=== PATIENT | male | born 1970 | race Caucasian/White ===

== ENCOUNTER 2017-02-09 09:39 | Inpatient (IN) | payer MEDICAID, OTHER ==
--- NOTE | 2017-02-09 09:50 | ED Physician Documentation ---
PD HPI MALE - Stated complaint Stated Complaint: UNABLE TO URINATE - Chief complaint Chief Complaint: Abd Pain - History obtained from History obtained from: Patient - History of Present Illness Timing - onset: How many days ago (5-6) Timing - duration: Days (has had feeling of constipation for the past week, with lower abd cramping for 5-6 days. Having small BMs at a time. No diarrhea nor blood in stool. Also having feeling of bladder fullness but only small urination at a time. Feverish several days ago, not the past 2 days.) Timing - details: Gradual onset, Still present, Waxing and waning Associated symptoms: Urinary frequency, Abdominal pain (left lower and suprapubic area.), Other (feeling of constipation). No: Hematuria Similar symptoms before: Has not had sx before Recently seen: Not recently seen Review of Systems Constitutional: reports: Fever, Chills, Myalgias, Fatigue Nose: denies: Rhinorrhea / runny nose, Congestion Throat: denies: Sore throat Cardiac: denies: Chest pain / pressure, Palpitations, Pedal edema, Calf pain Respiratory: reports: Wheezing (mild baseline). denies: Cough GI: reports: Abdominal Pain, Nausea, Constipation (feeling like he needs to push for BM). denies: Vomiting, Diarrhea : reports: Frequency, Hesitancy. denies: Dysuria Skin: denies: Rash, Lesions Neurologic: reports: Generalized weakness. denies: Focal weakness, Numbness, Near syncope, Altered mental status, Headache Endocrine: denies: Weight loss, Easy bruising / bleeding Immunocompromised: denies: Immunocompromised PD PAST MEDICAL HISTORY - Past Medical History Cardiovascular: None Respiratory: Asthma Neuro: None Endocrine/Autoimmune: None GI: None - Present Medications Home Medications: Ambulatory Orders Medication Instructions Recorded Confirmed No Known Home Medications [No 02/09/17 02/09/17 Known Home Medications] - Allergies Allergies/Adverse Reactions: Allergies Allergy/AdvReac Type Severity Reaction Status Date / Time No Known Drug Allergies Allergy Verified 02/09/17 09:46 - Family History Family history: reports: Non contributory PD ED PE NORMAL - Vitals Vital signs reviewed: Yes - General General: Alert and oriented X 3, Well developed/nourished, Other (appears in pain; strong smell of cigarettes. ) - HEENT HEENT: Pharynx benign - Neck Neck: Supple, no meningeal sign, No adenopathy - Cardiac Cardiac: RRR, No murmur - Respiratory Respiratory: Other (mild exp wheezing noted scattered. ) - Abdomen Abdomen: Non distended, Other (somewhat tender but soft umbilical hernia noted. Otherwise he has marked tenderness to palpation lower abd/left more than right. Some rebound. No percussion tenderness. Rest of abd not tender and does not refer to lower abd. ). No: Normal bowel sounds (decreased) - Male Male : Other (normal genitalia. ) - Rectal Rectal: Other (soft stool in vault, guiac negative. ) - Back Back: No CVA TTP - Derm Derm: Warm and dry, No rash, Other (slightly pale) - Extremities Extremities: No deformity, No tenderness to palpate, Normal ROM s pain, No edema , No calf tenderness / cord - Neuro Neuro: Alert and oriented X 3, No motor deficit, Normal speech - Psych Psych: Normal mood, Normal affect Results - Vitals Vitals: Vital Signs - 24 hr 02/09/17 02/09/17 02/09/17 09:42 10:54 11:59 Temperature 36.4 C L 36.5 C 37.1 C Heart Rate 87 83 100 Respiratory 16 15 15 Rate Blood Pressure 138/88 H 142/87 H 157/91 H O2 Saturation 99 96 94 02/09/17 02/09/17 02/09/17 12:40 13:07 13:37 Temperature 36.9 C Heart Rate 104 H 113 H Respiratory 12 15 Rate Blood Pressure 167/92 H O2 Saturation 94 93 02/09/17 02/09/17 02/09/17 14:16 14:43 14:47 Temperature 38.5 C H 38.6 C H Heart Rate 127 H Respiratory 18 Rate Blood Pressure 151/81 H O2 Saturation 95 Oxygen O2 Source Room air - Labs Labs: Laboratory Tests 02/09/17 02/09/17 02/09/17 10:21 10:21 12:05 WBC 13.7 H RBC 5.29 Hgb 15.6 Hct 45.7 MCV 86.4 MCH 29.6 MCHC 34.2 RDW 13.2 Plt Count 259 MPV 8.0 Neut # 11.7 H Lymph # 1.3 L Antelope # 0.6 Eos # 0.1 Baso # 0.1 Absolute Nucleated RBC 0.01 Nucleated RBCs 0.0 Sodium 139 Potassium 3.3 L Chloride 104 Carbon Dioxide 26 Anion Gap 9.0 BUN 11 Creatinine 0.8 Estimated GFR (MDRD) 105 Glucose 114 H Calcium 9.3 Magnesium 2.0 Total Bilirubin 0.7 AST 19 ALT 19 Alkaline Phosphatase 62 Total Protein 7.6 Albumin 4.1 Globulin 3.5 Albumin/Globulin Ratio 1.2 Lipase 15 L Urine Color YELLOW Urine Clarity CLEAR Urine pH 5.5 Ur Specific [place] <=1.005 Urine Protein NEGATIVE Urine Glucose (UA) NEGATIVE Urine Ketones 15 H Urine Occult Blood NEGATIVE Urine Nitrite NEGATIVE Urine Bilirubin NEGATIVE Urine Urobilinogen 1 (NORMAL) Ur Leukocyte Esterase NEGATIVE Ur Microscopic Review NOT INDICATED Urine Culture Comments NOT INDICATED - Rads (name of study) abd CT Radiology: Prelim report reviewed, Discussed with rads (sigmoid diverticulitis with perforation and free air; no abscess. ) PD MEDICAL DECISION MAKING - ED course Complexity details: reviewed results, re-evaluated patient, considered differential (given IV fluids and pain meds. Bladder scan showed just small amount in bladder. Likely lower abd process. CT showing diverticulitis with free air. Dr. Macdonald is in OR and will see patient as soon as his case is done. IV fluids, abx, and pain meds given. patient advised on findings and expected treatments. ), d/w patient Departure - Departure Disposition: ED Transfer to [facility] Clinical Impression: Abdominal pain Qualifiers: Abdominal location: lower abdomen, unspecified Qualified Code(s): R10.30 - Lower abdominal pain, unspecified Diverticulitis Qualifiers: Diverticulitis site: large intestine Diverticulitis bleeding: without bleeding Diverticulitis complication: with perforation Qualified Code(s): K57.20 - Diverticulitis of large intestine with perforation and abscess without bleeding Umbilical hernia Qualifiers: Obstruction and gangrene presence: without obstruction or gangrene Qualified Code(s): K42.9 - Umbilical hernia without obstruction or gangrene Condition: Serious Record reviewed to determine appropriate education?: Yes
[2017-02-09] MEDS ORDERED: SODIUM CHLORIDE 0.9% 1,000 ML IV ONE ×3 (10:14→15:38)
[2017-02-09] MEDS ORDERED: ONDANSETRON 4 MG/2 ML VIAL IVP STA (10:14)
[2017-02-09] MEDS ORDERED: HYDROmorphone 1 MG/ML SYRINGE IVP STA ×2 (10:14→11:56)
[2017-02-09 10:30] LABS: BASOPHILS # (AUTO) 0.1 10^3/uL (0.0-0.1); BASOPHILS % (AUTO) 0.4 %; EOSINOPHILS # (AUTO) 0.1 10^3/uL (0.0-0.7); EOSINOPHILS % (AUTO) 0.6 %; HCT - HEMATOCRIT 45.7 % (42.0-52.0); HGB - HEMOGLOBIN 15.6 g/dL (14.0-18.0); LYMPHOCYTES # (AUTO) 1.3 10^3/uL (1.5-3.5); LYMPHOCYTES % (AUTO) 9.5 %; MEAN CORPUSCULAR HEMOGLOBIN 29.6 pg (27.0-31.0); MEAN CORPUSCULAR HGB CONC 34.2 g/dL (32.0-36.0); MEAN CORPUSCULAR VOLUME 86.4 fL (80.0-94.0); MONOCYTES # (AUTO) 0.6 10^3/uL (0.0-1.0); MONOCYTES % (AUTO) 4.1 %; NEUTROPHILS # (AUTO) 11.7 10^3/uL (1.5-6.6); NEUTROPHILS % (AUTO) 85.4 %; RED BLOOD COUNT 5.29 10^6/uL (4.70-6.10); RED CELL DISTRIBUTION WIDTH 13.2 % (12.0-15.0); UNCORRECTED WHITE BLOOD COUNT 13.7 x10^3/uL; WHITE BLOOD COUNT 13.7 x10^3/uL (4.8-10.8)
[2017-02-09] MEDS ORDERED: ONDANSETRON 4 MG/2 ML VIAL ONE (10:39)
[2017-02-09] MEDS ORDERED: HYDROmorphone 1 MG/ML SYRINGE ONE ×2 (10:39→12:04)
[2017-02-09 10:43] LABS: ALBUMIN/GLOBULIN RATIO 1.2 (1.0-2.2); BILIRUBIN,TOTAL 0.7 mg/dL (0.2-1.0); CALCIUM 9.3 mg/dL (8.5-10.3); CREATININE 0.8 mg/dL (0.6-1.2); POTASSIUM 3.3 mmol/L (3.5-5.0); TOTAL PROTEIN 7.6 g/dL (6.7-8.2)
[2017-02-09] MEDS ORDERED: IOPAMIDOL-300 100 ML VIAL IVP ONE (11:25)
--- NOTE | 2017-02-09 11:54 | CT Preliminary Report ---
Exam: CT Abdomen/Pelvis W/ IMPRESSION: 1. Moderate amount of free air throughout the abdomen and pelvis appearing to originate from a perfor ated diverticulitis at the sigmoid colon. There is extensive inflammatory changes of the sigmoid and adjacent fat stranding and a small amount of free fluid in the pelvis. No rim-enhancing focal fluid c ollections. 2. Emphysema 3. 9 mm mass right chest wall posterior to area of gynecomastia. If there are not prior studies to do cument stability further evaluation with nonemergent diagnostic mammography and possible ultrasound w ould be recommended. 4. Bilateral nonobstructing renal stones. No evidence of hydronephrosis. 5. Normal appendix. 6. Right lower lobe atelectasis versus consolidation. Critical finding phone call placed 11:50am 02/09/2017 and awaiting call back to discuss results. [facility] SITE ID: [id number]
[2017-02-09] MEDS ORDERED: metroNIDAZOLE 500 MG/100 ML 100 ML IV ONE (11:56)
[2017-02-09] MEDS ORDERED: AMPICILLIN/SULBACTAM 1.5 GM in SODIUM CHLORIDE 0.9% MINIBAG 100 ML IV STA (11:56)
--- NOTE | 2017-02-09 11:57 | CT Report ---
EXAM: CT ABDOMEN AND PELVIS EXAM DATE: 02/09/2017 11:26 AM. CLINICAL HISTORY: Lower/left abd pain for few days. COMPARISONS: None. TECHNIQUE: Routine helical CT imaging was performed through the abdomen and pelvis. IV contrast: 100 mL Isovue-300. Enteric contrast: No. Reconstructions: Coronal and sagittal. In accordance with CT protocol optimization, one or more of the following dose reduction techniques w ere utilized for this exam: automated exposure control, adjustment of mA and/or KV based on patient s ize, or use of iterative reconstructive technique. FINDINGS: Lung Bases: Right lower lobe atelectasis versus consolidation. Emphysematous changes with numerous bl ebs at the lung bases. Liver: Normal. No masses. Gallbladder/Bile Ducts: Unremarkable. Spleen: Normal. Pancreas: Normal. Adrenal Glands: Normal. Kidneys: No hydronephrosis. Bilateral nonobstructive stones measuring up to 8 mm upper pole left kidn ey. 7 mm hypodensity left lower pole kidney too small to adequately characterize but most likely to r epresent a cyst. Peritoneal Cavity/Bowel: Moderate amount of free air throughout the abdomen and pelvis which appears to arise from a perforated diverticulitis at the sigmoid colon with marked bowel wall thickening and adjacent inflammatory fat stranding. No rim-enhancing focal fluid collections. There is a small amoun t of free fluid in the pelvis. Underlying mass lesion cannot be entirely excluded. The appendix is we ll visualized and normal. Pelvic Organs: Normal. The bladder and visualized pelvic organs are within normal limits. Vasculature: Within normal limits Bones: No significant abnormality. Other: Bilateral gynecomastia. There is a rounded nodular opacity series 3 image 5 measuring 9 mm pos terior to gynecomastia that is incompletely characterized but may represent a lymph node. IMPRESSION: 1. Moderate amount of free air throughout the abdomen and pelvis appearing to originate from a perfor ated diverticulitis at the sigmoid colon. There is extensive inflammatory changes of the sigmoid and adjacent fat stranding and a small amount of free fluid in the pelvis. No rim-enhancing focal fluid c ollections. 2. Emphysema 3. 9 mm mass right chest wall posterior to area of gynecomastia. If there are not prior studies to do cument stability further evaluation with nonemergent diagnostic mammography and possible ultrasound w ould be recommended. 4. Bilateral nonobstructing renal stones. No evidence of hydronephrosis. 5. Normal appendix. 6. Right lower lobe atelectasis versus consolidation. Critical finding phone call placed 11:50am 02/09/2017 and awaiting call back to discuss results. [facility] Referring Provider Line: [phone] SITE ID: [id number]
[2017-02-09] MEDS ORDERED: metroNIDAZOLE 500 MG/100 ML 100 ML ONE (12:05)
[2017-02-09 12:31] LABS: BILIRUBIN,URINE NEGATIVE (NEGATIVE); PH,URINE 5.5 PH (5.0-7.5)
[2017-02-09 12:36] LABS: UA CHARGE (STRIP ONLY) YES; UR CULTURE IF IND NOT INDICATED
[2017-02-09] MEDS ORDERED: ALBUTEROL NEB 2.5 MG/3 ML INH STA (12:44)
[2017-02-09] MEDS ORDERED: ALBUTEROL NEB 2.5 MG/3 ML INH ONE (13:08)
[2017-02-09] MEDS ORDERED: ACETAMINOPHEN 1,000 MG/100 ML 100 ML IV STA (14:17)
[2017-02-09] MEDS ORDERED: ACETAMINOPHEN 1,000 MG/100 ML 100 ML IV ONE (14:24)
[2017-02-09] MEDS ORDERED: LACTATED RINGERS 1,000 ML IV ONE ×2 (15:38→16:51)
[2017-02-09] MEDS ORDERED: MIDAZOLAM 2 MG/2 ML VIAL IVP ONE (16:15)
[2017-02-09] MEDS ORDERED: fentaNYL 100 MCG/2 ML VIAL IVP ONE (16:15)
[2017-02-09] MEDS ORDERED: LIDOCAINE-PF 2% 10 ML AMP SUBQ ONE (16:15)
[2017-02-09] MEDS ORDERED: GLYCOPYRROLATE 1 MG/5 ML VIAL IVP ONE (16:15)
[2017-02-09] MEDS ORDERED: SUCCINYLCHOLINE 200 MG/10 ML VIAL IVP ONE (16:15)
[2017-02-09] MEDS ORDERED: PROPOFOL 200 MG/20 ML VIAL IVP ONE (16:15)
[2017-02-09] MEDS ORDERED: NEOSTIGMINE 1 MG/1 ML 10 ML MDV IVP ONE (16:15)
[2017-02-09] MEDS ORDERED: PIPERACILLIN/TAZOBACTAM 3.375 GM in SODIUM CHLORIDE 0.9% MINIBAG 100 ML IV ONE (16:51)
--- NOTE | 2017-02-09 18:05 | OPERATIVE REPORT ---
Operative Report - General Procedure Date: 02/09/17 Planned Procedure: Sigmoidectomy with end colostomy Pre-Op Diagnosis: Free air from perforated diverticulitis Procedure Performed: Sigmoidectomy with end colostomy and Hartmans pouch Post Op Diagnosis: Same - Procedure Note Primary Surgeon: Clayton Reyes MD Anesthesia Provider: Tirso Arellano Anesthesia Technique: General ET tube IV Fluids (mL): 2,900 Estimated Blood Loss (mL): 400 Urine Output (mL): 750 Complications: None - Other Other Information/Narrative: OPERATIVE DESCRIPTION/REPORT: After verbal and written informed consent was obtained detailing the risks of infection, bleeding requiring transfusion with its risks, nerve injury, and , and after I met with the patient confirming the surgery and the site of the surgery, the patient was brought to the operative suite and placed supine on the operating table. Great care was taken to avoid pressure points to prevent pressure necrosis or nerve injury. Monitoring devices were applied along with TEDs and pneumatic compressive stockings (to prevent DVT). The patient received preoperative antibiotics for surgical prophylaxis. Tirso Arellano sedated and anesthetized the patient for the entire procedure. The patient was prepped and draped in the usual sterile manner. With the patient draped my initials were clearly visible. A "time in" then confirmed that the patient was identified with 3 identifiers (name, birthdate and medical record number), the history and physical was in the chart, the signed consent confirming the procedure was in the chart, the patient was in the correct position, the aforementioned prophylactic measures were in place or given, we had the correct personel and equipment to complete the procedure and that anesthesia, surgery and nursing were given an opportunuty to express any concerns. With the agreement of everyone in the room, we proceeded with the operation. A midline incision was made starting 2[address] from the xiphoid to the umbilicus right around the umbilicus and down to the pubic tubercle and taken down to the fascia. The small umbilical hernia was reduced. Once the incision was taken down to the fascia, the fascia and peritoneum were opened without incident or difficulty. The sigmoid colon was redundant. There was a significant amount of pus in the abdomen and examination of the abdomen revealed a large cantaloupe sized mass in the pelvis. There were marked adhesions to this mass notably small bowel in 2 areas as well as the redundant sigmoid. Pus was noted to be emanating from this. Gentle finger fracture was used to free the two areas where small bowel was adherent to this mass. The small bowel was examined afterwards and to injury was noted. Additional finger fracture noted the area of perforation and a fecalith was found and removed. The mid-sigmoid colon was selected as the proximal point of resection and a 75 MARK stapler was used to transect the colon at this point. The mesentery was then taken sequentially with a Ligasure and larger vessels were tied using 2-0 Vicryl ties. When the mesenteric vessels were encountered these were suture- ligated using 2-0 Vicryl. The dissection continued down to the peritoneal reflection. The posterior dissection was done using finger dissection along the sacrum whereas the peritoneal attachments both anteriorly and laterally were taken using Bovie electrocautery. The left ureter was identified and avoided. After dissecting beyond the tumor, an Ethicon Contour stapler was obtained and placed across the distal rectum and fired. The specimen was delivered from the operative field. A circular incision was made to the left of the umbilicus where the mid sigmoid colon come up to the skin easily without tension. The subcutaneous fat was excised using Bovie electrocautery. A linear incision was made in the anterior fascia and then in the posterior fascia using Bovie electrocautery taking care to protect the bowel underneath with my hand. The incision was made large enough to admit 2 of my fingers. A Mitzi was then placed through this opening and grasped the mid sigmoid colon taking great care not to twist the colon. The colon was then brought up to the skin. The abdomen was then copiously irrigated using warm sterile saline. The bowel was reexamined and no injury or problem was noted. The fascia was then closed using a running 0 PDS suture starting superiorly and inferiorly and running to meet in the middle just below the umbilicus. The skin was approximated intermittently using 3-0 nylon sutures in a mattress fashion in between the sutures was placed iodophor gauze. A dressing was applied above this. The ostomy was then matured circumferentially using both 2-0 and 3-0 Vicryl sutures. I used 3-0 Vicryl sutures primarily but when they ran out I used the 2 -0 Vicryl sutures. I digitalized the ostomy and the ostomy was patent beyond the fascia without stenosis. The ostomy is pink in color. An ostomy appliance was placed over this. At this point a time out was performed that confirmed that all the counts were correct, the procedure that was performed, the blood loss, the IV fluids administered, and the patients condition. Dragon disclaimer: This document was created in part using voice recognition technology. Because of the inherent limitations of the system ([employer]'s [employer] Dict[employer] user manual states that the licensee understands that speech recognition is a statistical process and that recognition errors are inherent in the process), occasional same sounding word substitutions and grammatical errors do occur and persist despite proofreading. Please read this document for context.
--- NOTE | 2017-02-09 18:33 | HISTORY & PHYSICAL EXAMINATION ---
PREOPERATIVE HISTORY AND PHYSICAL/CONSULTATION DATE OF ADMISSION: 02/09/2017 REQUESTING PROVIDER: I am called on a consultation by Dr. Clayton Faith to evaluate this 46-year-old m aidan for free air in the abdomen. HISTORY OF PRESENT ILLNESS: The patient was evaluated in room 8 at [facility]. The patient states that he has been sick for the better part of a week. The pain got to the point where he could not tolerate it any more, and he came into the emergency department. He denies any diarrhea or hematochezia. He has not been able to have a decent bowel movement or urina te appropriate for this amount of time. For the past few days, he has also been feverish. ALLERGIES: NONE. MEDICATIONS: None. PAST MEDICAL AND SURGICAL HISTORY: He has asthma. No previous abdominal operation. SOCIAL HISTORY: He smokes both cigarettes as well as marijuana. Does not drink alcohol. FAMILY HISTORY: Irrelevant. REVIEW OF SYSTEMS: Irrelevant at this point in time. PHYSICAL EXAMINATION GENERAL: This is a 46-year-old gentleman who appears markedly ill. He is evaluated in room 8 in [facility]. He is able to answer questions appropriately, but clearly is feverish and i n pain. HEENT: He is normocephalic, atraumatic. Sclerae are not injected, nonicteric. His left eye is lazy. H is mucous membranes are pink and very dry. NECK: Supple, no mass, no bruit. HEART: Tachycardic to the 120-130 range. I cannot appreciate rub or murmur. LUNGS: Tachypneic bilaterally. ABDOMEN: Has peritoneal findings with no bowel sounds. EXTREMITIES: Show no clubbing, cyanosis, or edema. They are nontender. GAIT: Not evaluated. RECTAL: Not performed. GENITOURINARY: Not performed. RADIOGRAPHIC: CT of the abdomen and pelvis is read by Dr. Francois, shows a moderate amount of free a ir throughout the abdomen and pelvis appearing to originate from a perforated diverticulitis of the s igmoid colon. There is extensive inflammatory changes of the sigmoid and adjacent fat stranding and a small amount of free fluid in the pelvis. There is no rim enhancing focal fluid collections. There i s emphysema. There is a 9 mm mass in the right chest posterior to an area of gynecomastia. If there a re no prior studies to document stability further evaluation with non-emergent diagnostic mammography and possible ultrasound would be recommended. Additionally bilateral nonobstructing renal stones and no evidence of hydronephrosis. Normal appendix and right lower lobe atelectasis versus consolidation . Laboratory abnormalities on CMP include a potassium of 3.3, glucose of 114, and a lipase of 15. Abnor malities on a urine included urine ketone of 15. Abnormalities on Hematology include a white blood ce ll count of 13.7 with 11.7, neutrophils and 1.3 lymphocytes. ASSESSMENT: A 46-year-old, ill-appearing soon to be septic gentleman due to perforated diverticulitis with fecal peritonitis. PLAN: Emergent operation with abdominal washout, sigmoidectomy, and colostomy and Nancy procedure. This was described to him in as much detail as I could at the time I saw him. Consent was signed and verbal consent was obtained as well. I explained that this patient is at very high risk for infectio n. He vocalized an understanding. He will be placed in the intensive care unit afterwards. He will re quire long-term antibiotics. He may require pressors. The emphysema may require him to be intubated f or longer then normal. All of this was discussed. JOB #: [id number] EXT JOB #:[id number]
[2017-02-09] MEDS: D5NS W/20 MEQ KCL 1,000 ML IV SCH (18:59)
[2017-02-09] MEDS: ACETAMINOPHEN 1,000 MG/100 ML 100 ML IV SCH (19:14)
[2017-02-09] MEDS: HYDROmorphone PCA 10 MG IV PRN (19:19)
[2017-02-10] MEDS: SODIUM CHLORIDE FLUSH 0.9% 10 ML SYRINGE IVP SCH ×3 (00:29→13:01)
[2017-02-10] MEDS: PIPERACILLIN/TAZOBACTAM 3.375 GM in SODIUM CHLORIDE 0.9% MINIBAG 100 ML IV SCH ×4 (00:29→17:07)
[2017-02-10] MEDS: ACETAMINOPHEN 1,000 MG/100 ML 100 ML IV SCH ×4 (01:40→18:04)
[2017-02-10 05:17] LABS: BASOPHILS % (AUTO) 0.2 %; HCT - HEMATOCRIT 40.3 % (42.0-52.0); HGB - HEMOGLOBIN 13.6 g/dL (14.0-18.0); LYMPHOCYTES # (AUTO) 1.1 10^3/uL (1.5-3.5); MEAN CORPUSCULAR HEMOGLOBIN 29.9 pg (27.0-31.0); MEAN CORPUSCULAR HGB CONC 33.9 g/dL (32.0-36.0); MEAN CORPUSCULAR VOLUME 88.2 fL (80.0-94.0); MONOCYTES # (AUTO) 0.7 10^3/uL (0.0-1.0); MONOCYTES % (AUTO) 3.9 %; NEUTROPHILS % (AUTO) 89.9 %; RED BLOOD COUNT 4.57 10^6/uL (4.70-6.10); RED CELL DISTRIBUTION WIDTH 12.9 % (12.0-15.0); UNCORRECTED WHITE BLOOD COUNT 18.9 x10^3/uL; WHITE BLOOD COUNT 18.9 x10^3/uL (4.8-10.8)
[2017-02-10 05:27] LABS: BILIRUBIN,TOTAL 1.1 mg/dL (0.2-1.0); CALCIUM 7.8 mg/dL (8.5-10.3); CREATININE 0.8 mg/dL (0.6-1.2); POTASSIUM 3.7 mmol/L (3.5-5.0); TOTAL PROTEIN 5.5 g/dL (6.7-8.2)
[2017-02-10] MEDS: D5NS W/20 MEQ KCL 1,000 ML IV SCH ×2 (06:00→17:07)
[2017-02-10] MEDS: PANTOPRAZOLE 40 MG VIAL IVP SCH (06:55)
[2017-02-10] MEDS: ENOXAPARIN 40 MG/0.4 ML SYRINGE SUBQ SCH (08:22)
--- NOTE | 2017-02-10 13:33 | PROVIDER PROGRESS NOTE ---
Subjective - General Admit Date: 02/09/17 Procedure Date: 02/09/17 Post Op Days: 1 Procedure Performed: Sigmoidectomy with end colostomy, Hartmanns, abdominal washout - Review of Systems Wound/Incisions: positive: Drainage (Serosanguinous on bandage) General: positive: Other (Definitely feels better than yesterday. Wants something to drink.) HEENT: positive: No symptoms Pulmonary: positive: No symptoms Cardiovascular: positive: No symptoms Gastrointestinal: positive: Nausea (Slight.) Genitourinary: positive: Other (Marquez in place.) Musculoskeletal: positive: No symptoms Skin: positive: No symptoms Psychiatric: positive: No symptoms Objective - Patient Data Reviewed Vital Signs: Yes Vital Signs: Vital Signs x48h Temp Pulse Resp BP Pulse Ox 02/10/17 13:00 87 23 128/89 H 95 02/10/17 12:00 80 16 125/87 H 97 02/10/17 11:00 37.0 C 75 15 120/81 H 99 02/10/17 09:54 71 18 122/83 H 97 02/10/17 09:00 77 17 114/78 98 02/10/17 08:16 12 02/10/17 08:00 37.0 C 85 20 104/65 96 02/10/17 07:00 15 02/10/17 06:56 36.9 C 74 15 114/74 97 02/10/17 06:00 67 15 105/67 100 Weight: Weight 02/08/17 02/09/17 02/10/17 23:59 23:59 23:59 Weight (kg) 94 kg Intake & Output: Intake and Output Totals x24h 02/08/17 02/09/17 02/10/17 23:59 23:59 23:59 Intake Total 475 1625 Output Total 625 860 Balance -150 765 - Lab Results Lab Results: 02/10/17 04:36 02/10/17 04:36 Other Lab Results: Lab Results x24hrs 02/10/17 02/10/17 Range/Units 04:36 04:36 WBC 18.9 H (4.8-10.8) x10^3/uL RBC 4.57 L (4.70-6.10) 10^6/uL Hgb 13.6 L (14.0-18.0) g/dL Hct 40.3 L (42.0-52.0) % MCV 88.2 (80.0-94.0) fL MCH 29.9 (27.0-31.0) pg MCHC 33.9 (32.0-36.0) g/dL RDW 12.9 (12.0-15.0) % Plt Count 230 (130-450) 10^3/uL MPV 9.0 (7.4-11.4) fL Neut # 17.0 H (1.5-6.6) 10^3/uL Lymph # 1.1 L (1.5-3.5) 10^3/uL [place] # 0.7 (0.0-1.0) 10^3/uL Eos # 0.0 (0.0-0.7) 10^3/uL Baso # 0.0 (0.0-0.1) 10^3/uL Absolute Nucleated RBC 0.00 x10^3/uL Nucleated RBCs 0.0 /100WBC Sodium 140 (135-145) mmol/L Potassium 3.7 (3.5-5.0) mmol/L Chloride 110 (101-111) mmol/L Carbon Dioxide 24 (21-32) mmol/L Anion Gap 6.0 (6-13) BUN 6 (6-20) mg/dL Creatinine 0.8 (0.6-1.2) mg/dL Estimated GFR (MDRD) 105 (>89) Glucose 153 H (70-100) mg/dL Calcium 7.8 L (8.5-10.3) mg/dL Total Bilirubin 1.1 H (0.2-1.0) mg/dL AST 11 (10-42) IU/L ALT 11 (10-60) IU/L Alkaline Phosphatase 43 (42-121) IU/L Total Protein 5.5 L (6.7-8.2) g/dL Albumin 2.7 L (3.2-5.5) g/dL Globulin 2.8 (2.1-4.2) g/dL Albumin/Globulin Ratio 1.0 (1.0-2.2) - Current Medications Current Medications: Current Medications Generic Name Dose Route Start Last Admin Trade Name Freq PRN Reason Stop Dose Admin Enoxaparin Sodium 40 mg 02/10/17 09:00 02/10/17 08:22 Lovenox SUBQ 40 mg DAILY CHAITANYA Administration Hydromorphone HCl 0 mg 02/09/17 18:31 02/09/17 19:19 Dilaudid Apartment Rental Agent (Use Apartment Rental Agent Order Set) IV 10 mg PRN PRN Administration PAIN Protocol Potassium Chloride/Dextrose/Sod Cl 1,000 mls @ 100 mls/hr 02/09/17 19:00 06:00 IV 100 mls/hr .Q10H CHAITANYA Administration Acetaminophen 100 mls @ 400 mls/hr 02/09/17 19:00 02/10/17 13:01 Ofirmev IV 400 mls/hr Q6H CHAITANYA Administration Piperacillin Sod/Tazobactam 100 mls @ 200 mls/hr 02/10/17 00:00 02/10/17 11:18 Sod 3.375 gm/ Sodium Chloride IV 02/17/17 23:55 200 mls/hr Q6HR CHAITANYA Administration Pantoprazole Sodium 40 mg 02/10/17 07:00 02/10/17 06:55 Protonix IVP 40 mg QDAC CHAITANYA Administration Sodium Chloride 10 ml 02/09/17 22:00 02/10/17 13:01 Normal Saline Flush 0.9% IVP 10 ml Q8HR CHAITANYA Administration - Physical Exam Wound/Incisions: positive: Drainage (Serosnaguinous. Should be changed.) General Appearance: positive: No acute distress (Appears markedly improved in comparison to yesterday.) Eyes Bilateral: positive: No lid inflammation, Conjunctivae nml, No scleral icterus Neck: positive: Trachea midline Respiratory: positive: Chest non-tender, No respiratory distress, Breath sounds nml Cardiovascular: positive: Regular rate & rhythm Abdomen: positive: Tenderness (Incisional.), Other (Quite. Ostomy pink without production. Some blood in bag.) Skin: positive: Color nml Extremities: positive: Nml appearance Neurologic/Psychiatric: positive: Oriented x3 Impression/Plan - Problem List Problem List: D1 s/p sigmoidectomy with end colostomy, HArtmanns, abdominal washout ( umbilical herniorrhaphy - coincidental) 1) FEN Continue IVF. Patient can have ice chips as ordered for comfort. Await bowel function to return prior to feeding. 2) ID Continue Zosyn x 1 week (D2/7) for fecalent peritonitis. 3) DVT prophylaxis Continue TEDs and venadynes. Ambulate patient starting today. 4) Pathology Pending but as fecalith found suspect perforated diverticulitis. 5) Pain controlled currently with BOTTOM LOADER. 6) No problems with BP, HR, RR or sats.
[2017-02-10] MEDS: HYDROmorphone PCA 10 MG IV PRN (15:54)
[2017-02-11] MEDS: PIPERACILLIN/TAZOBACTAM 3.375 GM in SODIUM CHLORIDE 0.9% MINIBAG 100 ML IV SCH ×4 (00:10→17:01)
[2017-02-11] MEDS: ACETAMINOPHEN 1,000 MG/100 ML 100 ML IV SCH ×4 (00:48→18:06)
[2017-02-11] MEDS: D5NS W/20 MEQ KCL 1,000 ML IV SCH ×3 (04:03→22:14)
[2017-02-11 05:44] LABS: BASOPHILS % (AUTO) 0.2 %; EOSINOPHILS # (AUTO) 0.1 10^3/uL (0.0-0.7); EOSINOPHILS % (AUTO) 0.5 %; HCT - HEMATOCRIT 35.9 % (42.0-52.0); HGB - HEMOGLOBIN 12.3 g/dL (14.0-18.0); LYMPHOCYTES # (AUTO) 1.3 10^3/uL (1.5-3.5); LYMPHOCYTES % (AUTO) 9.1 %; MEAN CORPUSCULAR HEMOGLOBIN 30.3 pg (27.0-31.0); MEAN CORPUSCULAR HGB CONC 34.2 g/dL (32.0-36.0); MEAN CORPUSCULAR VOLUME 88.8 fL (80.0-94.0); MEAN PLATELET VOLUME 9.1 fL (7.4-11.4); MONOCYTES # (AUTO) 0.7 10^3/uL (0.0-1.0); MONOCYTES % (AUTO) 4.9 %; NEUTROPHILS # (AUTO) 12.5 10^3/uL (1.5-6.6); NEUTROPHILS % (AUTO) 85.3 %; RED BLOOD COUNT 4.04 10^6/uL (4.70-6.10); RED CELL DISTRIBUTION WIDTH 13.4 % (12.0-15.0); UNCORRECTED WHITE BLOOD COUNT 14.7 x10^3/uL; WHITE BLOOD COUNT 14.7 x10^3/uL (4.8-10.8)
[2017-02-11 05:54] LABS: ALBUMIN/GLOBULIN RATIO 0.9 (1.0-2.2); BILIRUBIN,TOTAL 0.9 mg/dL (0.2-1.0); CALCIUM 7.9 mg/dL (8.5-10.3); CREATININE 0.7 mg/dL (0.6-1.2); POTASSIUM 3.3 mmol/L (3.5-5.0); TOTAL PROTEIN 5.6 g/dL (6.7-8.2)
[2017-02-11] MEDS: SODIUM CHLORIDE FLUSH 0.9% 10 ML SYRINGE IVP SCH ×4 (06:59→22:14)
[2017-02-11] MEDS: PANTOPRAZOLE 40 MG VIAL IVP SCH (06:59)
[2017-02-11] MEDS: ENOXAPARIN 40 MG/0.4 ML SYRINGE SUBQ SCH (08:15)
--- NOTE | 2017-02-11 21:46 | PROVIDER PROGRESS NOTE ---
Subjective - General Admit Date: 02/09/17 Procedure Date: 02/09/17 Post Op Days: 2 Procedure Performed: Sigmoidectomy with end colostomy, Hartmanns, abdominal washout - Review of Systems Wound/Incisions: positive: Dressing dry and intact General: positive: Other (Every day feels better. Vomited this AM just once.) HEENT: positive: No symptoms Pulmonary: positive: No symptoms Cardiovascular: positive: No symptoms Gastrointestinal: positive: Nausea (Slight.), Vomiting (One episode this AM.) Genitourinary: positive: Other (Marquez in place.) Musculoskeletal: positive: No symptoms Skin: positive: No symptoms Psychiatric: positive: No symptoms Objective - Patient Data Reviewed Vital Signs: Yes Vital Signs: Vital Signs x48h Temp Pulse Resp BP Pulse Ox 02/11/17 21:20 78 17 155/98 H 02/11/17 19:35 15 02/11/17 19:34 37.7 C H 85 20 155/101 H 94 02/11/17 18:52 81 17 95 02/11/17 18:00 80 17 96 02/11/17 17:00 68 19 98 02/11/17 16:00 36.8 C 83 17 146/94 H 97 02/11/17 15:00 79 15 159/96 H 97 02/11/17 14:00 84 18 151/99 H 97 Weight: Weight 02/09/17 02/10/17 02/11/17 23:59 23:59 23:59 Weight (kg) 94 kg Intake & Output: Intake and Output Totals x24h 02/09/17 02/10/17 02/11/17 23:59 23:59 23:59 Intake Total 475 2675 2425 Output Total 625 1100 1125 Balance -150 1575 1300 - Lab Results Lab Results: 02/11/17 04:34 02/11/17 04:34 Other Lab Results: Lab Results x24hrs 02/11/17 02/11/17 Range/Units 04:34 04:34 WBC 14.7 H (4.8-10.8) x10^3/uL RBC 4.04 L (4.70-6.10) 10^6/uL Hgb 12.3 L (14.0-18.0) g/dL Hct 35.9 L (42.0-52.0) % MCV 88.8 (80.0-94.0) fL MCH 30.3 (27.0-31.0) pg MCHC 34.2 (32.0-36.0) g/dL RDW 13.4 (12.0-15.0) % Plt Count 231 (130-450) 10^3/uL MPV 9.1 (7.4-11.4) fL Neut # 12.5 H (1.5-6.6) 10^3/uL Lymph # 1.3 L (1.5-3.5) 10^3/uL [place] # 0.7 (0.0-1.0) 10^3/uL Eos # 0.1 (0.0-0.7) 10^3/uL Baso # 0.0 (0.0-0.1) 10^3/uL Absolute Nucleated RBC 0.01 x10^3/uL Nucleated RBCs 0.0 /100WBC Sodium 140 (135-145) mmol/L Potassium 3.3 L (3.5-5.0) mmol/L Chloride 111 (101-111) mmol/L Carbon Dioxide 23 (21-32) mmol/L Anion Gap 6.0 (6-13) BUN 7 (6-20) mg/dL Creatinine 0.7 (0.6-1.2) mg/dL Estimated GFR (MDRD) 123 (>89) Glucose 115 H (70-100) mg/dL Calcium 7.9 L (8.5-10.3) mg/dL Total Bilirubin 0.9 (0.2-1.0) mg/dL AST 13 (10-42) IU/L ALT 11 (10-60) IU/L Alkaline Phosphatase 46 (42-121) IU/L Total Protein 5.6 L (6.7-8.2) g/dL Albumin 2.7 L (3.2-5.5) g/dL Globulin 2.9 (2.1-4.2) g/dL Albumin/Globulin Ratio 0.9 L (1.0-2.2) - Current Medications Current Medications: Current Medications Generic Name Dose Route Start Last Admin Trade Name Freq PRN Reason Stop Dose Admin Enoxaparin Sodium 40 mg 02/10/17 09:00 02/11/17 08:15 Lovenox SUBQ 40 mg DAILY CHAITANYA Administration Hydromorphone HCl 0 mg 02/09/17 18:31 02/10/17 15:54 Dilaudid Systems Planner (Use Systems Planner Order Set) IV 10 mg PRN PRN Administration PAIN Protocol Potassium Chloride/Dextrose/Sod Cl 1,000 mls @ 100 mls/hr 02/09/17 19:00 15:30 IV 100 mls/hr .Q10H CHAITANYA Administration Acetaminophen 100 mls @ 400 mls/hr 02/09/17 19:00 02/11/17 18:06 Ofirmev IV 400 mls/hr Q6H CHAITANYA Administration Piperacillin Sod/Tazobactam 100 mls @ 200 mls/hr 02/10/17 00:00 02/11/17 17:01 Sod 3.375 gm/ Sodium Chloride IV 02/17/17 23:55 200 mls/hr Q6HR CHAITANYA Administration Pantoprazole Sodium 40 mg 02/10/17 07:00 02/11/17 06:59 Protonix IVP 40 mg QDAC CHAITANYA Administration Sodium Chloride 10 ml 02/09/17 22:00 02/11/17 12:54 Normal Saline Flush 0.9% IVP 10 ml Q8HR CHAITANYA Administration - Physical Exam Wound/Incisions: positive: Dressing dry and intact General Appearance: positive: Mild distress (Markedly improved from peroperatively.) Eyes Bilateral: positive: No lid inflammation, Conjunctivae nml, No scleral icterus Neck: positive: Trachea midline Respiratory: positive: Chest non-tender, No respiratory distress, Breath sounds nml Cardiovascular: positive: Regular rate & rhythm Abdomen: positive: Other (Quiet with decreased tenderness.) Skin: positive: Other (Color not quite normal yet but improved.) Extremities: positive: Nml appearance Neurologic/Psychiatric: positive: Oriented x3 Impression/Plan - Problem List Problem List: D2 s/p sigmoidectomy with end colostomy and Hartmanns 1) FEN Continue IVF and supplement potassium. Await bowel function prior to feeding. 2) ID Continue Zosyn D3/7-10. WBC as expected. At risk for infection due to spillage of bowel contents in abdomen. Not septic. 3) Pathology Not returned expect diverticulitis. 4) Activity Ambulating and in chair. Improving daily. 5) Pain Doing well with minimal use of his BRIM ROUNDER. Transfer to medical-surgical unit.
[2017-02-11] MEDS ORDERED: POTASSIUM CHLORIDE INJ 40 MEQ in SODIUM CHLORIDE 0.9% 480 ML IV SCH (22:27)
[2017-02-11] MEDS ORDERED: POTASSIUM CHLOR 10 MEQ/100 ML 100 ML IV ONE (23:37)
[2017-02-12] MEDS: PIPERACILLIN/TAZOBACTAM 3.375 GM in SODIUM CHLORIDE 0.9% MINIBAG 100 ML IV SCH ×4 (00:17→18:01)
[2017-02-12] MEDS: POTASSIUM CHLOR 10 MEQ/100 ML 100 ML IV SCH ×4 (00:48→03:56)
[2017-02-12] MEDS: ACETAMINOPHEN 1,000 MG/100 ML 100 ML IV SCH ×4 (00:59→19:59)
[2017-02-12] MEDS: D5NS W/20 MEQ KCL 1,000 ML IV SCH ×2 (03:20→14:56)
[2017-02-12 05:51] LABS: BASOPHILS # (AUTO) 0.1 10^3/uL (0.0-0.1); BASOPHILS % (AUTO) 0.8 %; EOSINOPHILS # (AUTO) 0.1 10^3/uL (0.0-0.7); EOSINOPHILS % (AUTO) 1.5 %; HGB - HEMOGLOBIN 11.7 g/dL (14.0-18.0); LYMPHOCYTES # (AUTO) 1.4 10^3/uL (1.5-3.5); LYMPHOCYTES % (AUTO) 15.3 %; MEAN CORPUSCULAR HEMOGLOBIN 30.1 pg (27.0-31.0); MEAN CORPUSCULAR HGB CONC 34.3 g/dL (32.0-36.0); MEAN CORPUSCULAR VOLUME 87.8 fL (80.0-94.0); MEAN PLATELET VOLUME 8.4 fL (7.4-11.4); MONOCYTES # (AUTO) 0.5 10^3/uL (0.0-1.0); MONOCYTES % (AUTO) 5.4 %; RED BLOOD COUNT 3.87 10^6/uL (4.70-6.10); RED CELL DISTRIBUTION WIDTH 13.1 % (12.0-15.0); UNCORRECTED WHITE BLOOD COUNT 9.1 x10^3/uL; WHITE BLOOD COUNT 9.1 x10^3/uL (4.8-10.8)
[2017-02-12 06:05] LABS: ALBUMIN/GLOBULIN RATIO 0.8 (1.0-2.2); BILIRUBIN,TOTAL 0.9 mg/dL (0.2-1.0); CREATININE 0.6 mg/dL (0.6-1.2); POTASSIUM 4.1 mmol/L (3.5-5.0); TOTAL PROTEIN 5.5 g/dL (6.7-8.2)
[2017-02-12] MEDS: PANTOPRAZOLE 40 MG VIAL IVP SCH (06:31)
[2017-02-12] MEDS: SODIUM CHLORIDE FLUSH 0.9% 10 ML SYRINGE IVP SCH ×3 (06:31→19:59)
[2017-02-12] MEDS: ENOXAPARIN 40 MG/0.4 ML SYRINGE SUBQ SCH (09:14)
[2017-02-12] MEDS: HYDROmorphone PCA 10 MG IV PRN (15:02)
--- NOTE | 2017-02-12 22:56 | PROVIDER PROGRESS NOTE ---
Subjective - General Admit Date: 02/09/17 Procedure Date: 02/09/17 Post Op Days: 3 Procedure Performed: Sigmoidectomy with end colostomy, Hartmanns, abdominal washout - Review of Systems Wound/Incisions: positive: Drainage (Sanguinous but no active bleeding.) General: positive: Other (Every day feels better. Very slow improvement. Not a self motivator.) HEENT: positive: No symptoms Pulmonary: positive: No symptoms Cardiovascular: positive: No symptoms Gastrointestinal: positive: Nausea (Slight.) Musculoskeletal: positive: No symptoms Skin: positive: No symptoms Psychiatric: positive: No symptoms Objective - Patient Data Reviewed Vital Signs: Yes Vital Signs: Vital Signs x48h Temp Pulse Resp BP Pulse Ox 02/12/17 21:51 16 02/12/17 20:59 37.4 C 58 L 16 134/81 H 94 02/12/17 18:00 14 02/12/17 17:19 36.8 C 58 L 16 157/96 H 95 Intake & Output: Intake and Output Totals x24h 02/10/17 02/11/17 02/12/17 23:59 23:59 23:59 Intake Total 2675 2625 2830 Output Total 1100 1125 825 Balance 1575 1500 2004 - Lab Results Lab Results: 02/12/17 04:57 02/12/17 04:57 Other Lab Results: Lab Results x24hrs 02/12/17 02/12/17 Range/Units 04:57 04:57 WBC 9.1 (4.8-10.8) x10^3/uL RBC 3.87 L (4.70-6.10) 10^6/uL Hgb 11.7 L (14.0-18.0) g/dL Hct 34.0 L (42.0-52.0) % MCV 87.8 (80.0-94.0) fL MCH 30.1 (27.0-31.0) pg MCHC 34.3 (32.0-36.0) g/dL RDW 13.1 (12.0-15.0) % Plt Count 236 (130-450) 10^3/uL MPV 8.4 (7.4-11.4) fL Neut # 7.0 H (1.5-6.6) 10^3/uL Lymph # 1.4 L (1.5-3.5) 10^3/uL [place] # 0.5 (0.0-1.0) 10^3/uL Eos # 0.1 (0.0-0.7) 10^3/uL Baso # 0.1 (0.0-0.1) 10^3/uL Absolute Nucleated RBC 0.00 x10^3/uL Nucleated RBCs 0.0 /100WBC Sodium 138 (135-145) mmol/L Potassium 4.1 (3.5-5.0) mmol/L Chloride 110 (101-111) mmol/L Carbon Dioxide 21 (21-32) mmol/L Anion Gap 7.0 (6-13) BUN 8 (6-20) mg/dL Creatinine 0.6 (0.6-1.2) mg/dL Estimated GFR (MDRD) 146 (>89) Glucose 98 (70-100) mg/dL Calcium 8.0 L (8.5-10.3) mg/dL Total Bilirubin 0.9 (0.2-1.0) mg/dL AST 14 (10-42) IU/L ALT 12 (10-60) IU/L Alkaline Phosphatase 59 (42-121) IU/L Total Protein 5.5 L (6.7-8.2) g/dL Albumin 2.5 L (3.2-5.5) g/dL Globulin 3.0 (2.1-4.2) g/dL Albumin/Globulin Ratio 0.8 L (1.0-2.2) - Current Medications Current Medications: Current Medications Generic Name Dose Route Start Last Admin Trade Name Braden PRN Reason Stop Dose Admin Enoxaparin Sodium 40 mg 02/10/17 09:00 02/12/17 09:14 Lovenox SUBQ 40 mg DAILY CHAITANYA Administration Hydromorphone HCl 0 mg 02/09/17 18:31 02/12/17 15:02 Dilaudid Boil Off Machine Operator Cloth (Use Boil Off Machine Operator Cloth Order Set) IV 10 mg PRN PRN Administration PAIN Protocol Potassium Chloride/Dextrose/Sod Cl 1,000 mls @ 100 mls/hr 02/09/17 19:00 14:56 IV 100 mls/hr .Q10H CHAITANYA Administration Acetaminophen 100 mls @ 400 mls/hr 02/09/17 19:00 02/12/17 19:59 Ofirmev IV 400 mls/hr Q6H CHAITANYA Administration Piperacillin Sod/Tazobactam 100 mls @ 200 mls/hr 02/10/17 00:00 02/12/17 18:01 Sod 3.375 gm/ Sodium Chloride IV 02/17/17 23:55 200 mls/hr Q6HR CHAITANYA Administration Pantoprazole Sodium 40 mg 02/10/17 07:00 02/12/17 06:31 Protonix IVP 40 mg QDAC CHAITANYA Administration Sodium Chloride 10 ml 02/09/17 22:00 02/12/17 19:59 Normal Saline Flush 0.9% IVP Not Given Q8HR CHAITANYA - Physical Exam Wound/Incisions: positive: Healing well (Packing removed and there is the beginning of granulation tissue.), Other (OPstomy pink without production of gas or stool.) General Appearance: positive: No acute distress Eyes Bilateral: positive: No lid inflammation, Conjunctivae nml, No scleral icterus Neck: positive: Trachea midline Respiratory: positive: Chest non-tender, No respiratory distress, Breath sounds nml Cardiovascular: positive: Regular rate & rhythm Abdomen: positive: Tenderness (Incisional.) Skin: positive: Pallor (Very slight.) Extremities: positive: Nml appearance Neurologic/Psychiatric: positive: Oriented x3 Impression/Plan - Problem List Problem List: D3 s/p sigmoidectomy, end colostomy, Hartmanns 1) FEN Continue IVF and await bowel function to return as evidenced by output in ostomy. 2) Ostomy Really appreciate Bianca Bray (sp?) and the teachiong she is doing - fantastic. Patient is slowly learning. 3) ID Wound looks great and WBC has normalized nicely but not out of the [place] yet. My concern already high will peak at day 5-7. 4) DVT Prophylaxis in place and has been ambulating. 5) Pathology Pending - expect ruptured diverticulitis. 6) Activity Must ambulate as much as possible. Shower in the works in next 24-48 hours.
[2017-02-13] MEDS: PIPERACILLIN/TAZOBACTAM 3.375 GM in SODIUM CHLORIDE 0.9% MINIBAG 100 ML IV SCH ×4 (00:01→19:25)
[2017-02-13] MEDS: ACETAMINOPHEN 1,000 MG/100 ML 100 ML IV SCH ×4 (00:45→19:55)
[2017-02-13] MEDS: D5NS W/20 MEQ KCL 1,000 ML IV SCH ×2 (02:34→16:00)
[2017-02-13] MEDS: SODIUM CHLORIDE FLUSH 0.9% 10 ML SYRINGE IVP SCH ×3 (06:01→20:16)
[2017-02-13] MEDS: SODIUM CHLORIDE FLUSH 0.9% 10 ML SYRINGE IVP PRN (06:45)
[2017-02-13] MEDS: PANTOPRAZOLE 40 MG VIAL IVP SCH (06:45)
[2017-02-13] MEDS: ENOXAPARIN 40 MG/0.4 ML SYRINGE SUBQ SCH (09:41)
[2017-02-13] MEDS: KETOROLAC 15 MG/ML VIAL IVP PRN (19:25)
--- NOTE | 2017-02-13 23:09 | PROVIDER PROGRESS NOTE ---
Subjective - General Admit Date: 02/09/17 Procedure Date: 02/09/17 Post Op Days: 4 Procedure Performed: Sigmoidectomy with end colostomy, Hartmanns, abdominal washout - Review of Systems Wound/Incisions: positive: Healing well (Packing removed and there is the beginning of granulation tissue.), Other (OPstomy pink without production of gas or stool.) General: positive: Other (Every day feels better. Very slow improvement. Not a self motivator.) HEENT: positive: No symptoms Pulmonary: positive: No symptoms Cardiovascular: positive: No symptoms Gastrointestinal: positive: Flatus (In colostomy bag.) Musculoskeletal: positive: No symptoms Skin: positive: No symptoms Psychiatric: positive: No symptoms Objective - Patient Data Reviewed Vital Signs: Yes Vital Signs: Vital Signs x48h Temp Pulse Resp BP Pulse Ox 02/13/17 19:50 37.2 C 60 18 148/83 H 98 02/13/17 16:02 36.7 C 53 L 165/92 H 98 Intake & Output: Intake and Output Totals x24h 02/11/17 02/12/17 02/13/17 23:59 23:59 23:59 Intake Total 2625 2830 2386 Output Total 7019 846 0937 Balance 1500 2005 04 - Lab Results Lab Results: 02/12/17 04:57 02/12/17 04:57 - Current Medications Current Medications: Current Medications Generic Name Dose Route Start Last Admin Trade Name Freq PRN Reason Stop Dose Admin Enoxaparin Sodium 40 mg 02/10/17 09:00 02/13/17 09:41 Lovenox SUBQ 40 mg DAILY CHAITANYA Administration Potassium Chloride/Dextrose/Sod Cl 1,000 mls @ 100 mls/hr 02/09/17 19:00 16:00 IV 100 mls/hr .Q10H CHAITANYA Administration Acetaminophen 100 mls @ 400 mls/hr 02/09/17 19:00 02/13/17 19:55 Ofirmev IV 400 mls/hr Q6H CHAITANYA Administration Piperacillin Sod/Tazobactam 100 mls @ 200 mls/hr 02/10/17 00:00 02/13/17 19:25 Sod 3.375 gm/ Sodium Chloride IV 02/17/17 23:55 200 mls/hr Q6HR CHAITANYA Administration Ketorolac Tromethamine 15 mg 02/13/17 15:52 02/13/17 19:25 Toradol Inj IVP 02/18/17 15:51 15 mg Q6HR PRN Administration PAIN Pantoprazole Sodium 40 mg 02/10/17 07:00 02/13/17 06:45 Protonix IVP 40 mg QDAC CHAITANYA Administration Sodium Chloride 10 ml 02/09/17 18:24 02/13/17 06:45 Normal Saline Flush 0.9% IVP 10 ml PRN PRN Administration NEEDED PER PROVIDER ORDERS Sodium Chloride 10 ml 02/09/17 22:00 02/13/17 20:16 Normal Saline Flush 0.9% IVP Not Given Q8HR CHAITANYA - Physical Exam Wound/Incisions: positive: Healing well (Beginning of granulation tissue.) General Appearance: positive: No acute distress Eyes Bilateral: positive: No lid inflammation, Conjunctivae nml, No scleral icterus Neck: positive: Trachea midline Respiratory: positive: Chest non-tender, No respiratory distress, Breath sounds nml Cardiovascular: positive: Regular rate & rhythm Abdomen: positive: Abnml bowel sounds (Slightly decreased.), Other (Air in colostomy bag.) Extremities: positive: Nml appearance Neurologic/Psychiatric: positive: Oriented x3 Impression/Plan - Problem List Problem List: D4 s/p Sigmoidectomy with end colostomy, Hartmanns, abdominal washout 1) FEN Start diet and see how he tolerates. Decrease IVF. 2) Activity Ambulating better. Shower in the next 24 hours. 3) Pathology Pending. 4) ID D4/7-10 Zosyn. If tolerates diet well will switch to Levaquin and Flagyl and see how he tolerates. Nice response in his WBC. 5) DVT Prophylaxis in place. Ambulating. 6) Teaching Colostomy and wound care teaching ongoing.
[2017-02-13] MEDS ORDERED: D5NS W/20 MEQ KCL 1,000 ML IV SCH (23:14)
[2017-02-14] MEDS: PIPERACILLIN/TAZOBACTAM 3.375 GM in SODIUM CHLORIDE 0.9% MINIBAG 100 ML IV SCH ×2 (00:27→05:36)
[2017-02-14] MEDS: ACETAMINOPHEN 1,000 MG/100 ML 100 ML IV SCH ×2 (01:08→06:24)
[2017-02-14] MEDS: KETOROLAC 15 MG/ML VIAL IVP PRN (01:08)
[2017-02-14 05:59] LABS: BASOPHILS % (AUTO) 0.4 %; EOSINOPHILS # (AUTO) 0.2 10^3/uL (0.0-0.7); EOSINOPHILS % (AUTO) 2.2 %; HCT - HEMATOCRIT 34.5 % (42.0-52.0); HGB - HEMOGLOBIN 11.7 g/dL (14.0-18.0); LYMPHOCYTES # (AUTO) 1.7 10^3/uL (1.5-3.5); LYMPHOCYTES % (AUTO) 22.6 %; MEAN CORPUSCULAR HEMOGLOBIN 29.8 pg (27.0-31.0); MEAN CORPUSCULAR HGB CONC 33.8 g/dL (32.0-36.0); MONOCYTES # (AUTO) 0.6 10^3/uL (0.0-1.0); MONOCYTES % (AUTO) 7.4 %; NEUTROPHILS % (AUTO) 67.4 %; RED BLOOD COUNT 3.92 10^6/uL (4.70-6.10); RED CELL DISTRIBUTION WIDTH 12.8 % (12.0-15.0); UNCORRECTED WHITE BLOOD COUNT 7.5 x10^3/uL; WHITE BLOOD COUNT 7.5 x10^3/uL (4.8-10.8)
[2017-02-14 06:07] LABS: ALBUMIN/GLOBULIN RATIO 0.9 (1.0-2.2); BILIRUBIN,TOTAL 0.8 mg/dL (0.2-1.0); CALCIUM 8.5 mg/dL (8.5-10.3); CREATININE 0.7 mg/dL (0.6-1.2); POTASSIUM 3.5 mmol/L (3.5-5.0); TOTAL PROTEIN 5.5 g/dL (6.7-8.2)
[2017-02-14] MEDS: SODIUM CHLORIDE FLUSH 0.9% 10 ML SYRINGE IVP PRN (06:25)
[2017-02-14] MEDS: PANTOPRAZOLE 40 MG VIAL IVP SCH (06:25)
[2017-02-14] MEDS: SODIUM CHLORIDE FLUSH 0.9% 10 ML SYRINGE IVP SCH (06:25)
[2017-02-14] MEDS: ENOXAPARIN 40 MG/0.4 ML SYRINGE SUBQ SCH (08:58)
--- NOTE | 2017-02-14 12:39 | PROVIDER PROGRESS NOTE ---
Subjective - General Admit Date: 02/09/17 Procedure Date: 02/09/17 Post Op Days: 5 Procedure Performed: Sigmoidectomy with end colostomy, Hartmanns, abdominal washout - Review of Systems Wound/Incisions: positive: Healing well (Beginning of granulation tissue.), Dressing dry and intact General: positive: No symptoms (Does not want opiates.) HEENT: positive: No symptoms Pulmonary: positive: No symptoms Cardiovascular: positive: No symptoms Gastrointestinal: positive: Flatus (And stool in colostomy bag.) Genitourinary: positive: No symptoms Musculoskeletal: positive: No symptoms Skin: positive: No symptoms Psychiatric: positive: No symptoms Objective - Patient Data Reviewed Vital Signs: Yes Vital Signs: Vital Signs x48h Temp Pulse Resp BP Pulse Ox 02/14/17 07:38 36.7 C 68 20 162/90 H 97 02/14/17 05:45 36.9 C 96 20 131/80 H 97 Intake & Output: Intake and Output Totals x24h 02/12/17 02/13/17 02/14/17 23:59 23:59 23:59 Intake Total 2830 2386 1461 Output Total 825 2375 875 Balance 2004 11 586 - Lab Results Lab Results: 02/14/17 04:55 02/14/17 04:55 Other Lab Results: Lab Results x24hrs 02/14/17 02/14/17 Range/Units 04:55 04:55 WBC 7.5 (4.8-10.8) x10^3/uL RBC 3.92 L (4.70-6.10) 10^6/uL Hgb 11.7 L (14.0-18.0) g/dL Hct 34.5 L (42.0-52.0) % MCV 88.0 (80.0-94.0) fL MCH 29.8 (27.0-31.0) pg MCHC 33.8 (32.0-36.0) g/dL RDW 12.8 (12.0-15.0) % Plt Count 283 (130-450) 10^3/uL MPV 8.0 (7.4-11.4) fL Neut # 5.0 (1.5-6.6) 10^3/uL Lymph # 1.7 (1.5-3.5) 10^3/uL [place] # 0.6 (0.0-1.0) 10^3/uL Eos # 0.2 (0.0-0.7) 10^3/uL Baso # 0.0 (0.0-0.1) 10^3/uL Absolute Nucleated RBC 0.00 x10^3/uL Nucleated RBCs 0.0 /100WBC Sodium 142 (135-145) mmol/L Potassium 3.5 (3.5-5.0) mmol/L Chloride 111 (101-111) mmol/L Carbon Dioxide 24 (21-32) mmol/L Anion Gap 7.0 (6-13) BUN 8 (6-20) mg/dL Creatinine 0.7 (0.6-1.2) mg/dL Estimated GFR (MDRD) 123 (>89) Glucose 99 (70-100) mg/dL Calcium 8.5 (8.5-10.3) mg/dL Total Bilirubin 0.8 (0.2-1.0) mg/dL AST 27 (10-42) IU/L ALT 29 (10-60) IU/L Alkaline Phosphatase 70 (42-121) IU/L Total Protein 5.5 L (6.7-8.2) g/dL Albumin 2.6 L (3.2-5.5) g/dL Globulin 2.9 (2.1-4.2) g/dL Albumin/Globulin Ratio 0.9 L (1.0-2.2) - Current Medications Current Medications: Current Medications Generic Name Dose Route Start Last Admin Trade Name Freq PRN Reason Stop Dose Admin Enoxaparin Sodium 40 mg 02/10/17 09:00 02/14/17 08:58 Lovenox SUBQ 40 mg DAILY CHAITANYA Administration Acetaminophen 100 mls @ 400 mls/hr 02/09/17 19:00 02/14/17 06:24 Ofirmev IV 400 mls/hr Q6H CHAITANYA Administration Piperacillin Sod/Tazobactam 100 mls @ 200 mls/hr 02/10/17 00:00 02/14/17 05:36 Sod 3.375 gm/ Sodium Chloride IV 02/17/17 23:55 200 mls/hr Q6HR CHAITANYA Administration Potassium Chloride/Dextrose/Sod Cl 1,000 mls @ 65 mls/hr 02/13/17 23:14 05:36 IV 65 mls/hr .[id number] CHAITANYA Administration Ketorolac Tromethamine 15 mg 02/13/17 15:52 02/14/17 01:08 Toradol Inj IVP 02/18/17 15:51 15 mg Q6HR PRN Administration PAIN Pantoprazole Sodium 40 mg 02/10/17 07:00 02/14/17 06:25 Protonix IVP 40 mg QDAC CHAITANYA Administration Sodium Chloride 10 ml 02/09/17 18:24 02/14/17 06:25 Normal Saline Flush 0.9% IVP 10 ml PRN PRN Administration NEEDED PER PROVIDER ORDERS Sodium Chloride 10 ml 02/09/17 22:00 02/14/17 06:25 Normal Saline Flush 0.9% IVP 10 ml Q8HR CHAITANYA Administration - Physical Exam Wound/Incisions: positive: Healing well, No drainage, Other (Good granulation.) General Appearance: positive: No acute distress Eyes Bilateral: positive: No lid inflammation, Conjunctivae nml, No scleral icterus Neck: positive: Trachea midline Respiratory: positive: Chest non-tender, No respiratory distress, Breath sounds nml Cardiovascular: positive: Regular rate & rhythm Abdomen: positive: Nml bowel sounds, Other (Ostomy pink and productive.) Skin: positive: Color nml Extremities: positive: Non-tender, Full ROM, Nml appearance Neurologic/Psychiatric: positive: Oriented x3 Impression/Plan - Problem List Problem List: D5 s/p sigmoidectomy with end colostomy and Hartmanns for perforated diverticulitis Pathology discussed with patient. Patient instructed on wound and colostomy care. Patient to follow up with me in 7-10 days. Call me with surgical questions or concerns. OK to discharge home.
--- NOTE | 2017-02-14 12:48 | Discharge Plan ---
Discharge Plan Disposition: Home, Self Care Condition: Good Prescriptions: Ketorolac [Toradol] 10 mg PO Q6H #20 tablet Diet: Regular Activity Restrictions: No lifting >15 pounds x6 Shower Restrictions: No Driving Restrictions: Yes (Until seen in office.) Weight Bearing: Full Weight Additional Instructions or Follow Up instructions: Wet to dry dressing changes twice per day. Shower daily washing wound with soap and water. Ostomy care as taught. Call with surgical questions or concerns. No Smoking: If you smoke, Please STOP! Call for help. Follow-up with: Clayton Reyes MD [Provider Admit Priv/Credential] -
[2017-02-14 12:52] VITALS: BP 147/83
--- NOTE | 2017-02-14 13:21 | Discharge Plan ---
Discharge Plan Disposition: Home, Self Care Condition: Good Prescriptions: Ketorolac [Toradol] 10 mg PO Q6H #20 tablet Activity Restrictions: No lifting >15 pounds x6 Shower Restrictions: No Driving Restrictions: Yes (Until seen in office.) Weight Bearing: Full Weight Additional Instructions or Follow Up instructions: Wet to dry dressing changes twice per day. Shower daily washing wound with soap and water. Ostomy care as taught. Call with surgical questions or concerns. Prescriptions also written for Levaquin 500 mg daily x7 days and Flagyl 250 mg QID x7 days No Smoking: If you smoke, Please STOP! Call for help. Follow-up with: Clayton Reyes MD [Provider Admit Priv/Credential] -
--- NOTE | 2017-02-15 08:56 | DISCHARGE SUMMARY ---
DATE OF ADMISSION: 02/09/2017 DATE OF DISCHARGE: 02/14/2017 DATE OF ADMISSION: 02/09/2017. DATE OF DISCHARGE: 02/14/2017 ADMITTING DIAGNOSIS: Perforated sigmoid diverticulitis with fecalent peritonitis DISCHARGE DIAGNOSIS: Perforated sigmoid diverticulitis with fecalent peritonitis treated with sigmoidectomy, end colostomy, Hartmanns pouch and IV antibiotics. COURSE: I was called in consultation by Dr. Clayton Faith to evaluate this patient with free air and acute abdomen. Studies quickly determined that the patient had free air as a result of perforated diverticulitis. He was taken urgently to the operating room on 02/09/2017, operated on by myself, Dr. Clayton Reyes, and anesthesia provider was Tirso Arellano; the patient had a sigmoidectomy with end colostomy and Nancy pouch. The patient did well postoperatively, and he is being discharged on the fifth postoperative day. MEDICATIONS His medications include: 1. Ketorolac 10 mg tablet 1 tab p.o. every 6 hours as needed for pain. 2. Levaquin 500 mg tablet p.o. daily. 3. Flagyl 250 mg tablet p.o. q.i.d. He is to follow up with me in a week to 10 days. He has been shown how to take care of his wound as well as his ostomy. He has been instructed to stop smoking , and it is very heartening to see that both he and his and his brother are interested in stopping smoking. I have asked him to contact me with any surgical questions or concerns, and he stated that he would note. He was instructed to shower daily getting soap and water through the wound as well as not lift anything heavier than 15 pounds for 6 weeks. DISPOSITION: Home with follow up with Dr. Reyes in 7-10 days. JOB #: [id number] EXT JOB #:[id number] [facility] [place]
== END 2017-02-14 13:46 | disposition home or self-care (01) | DRG 330 ==
LOC: ED 09:39 → SDS 14:50 → ICU 18:10 → MS3 02-12 19:11
PROVIDERS: ADMIT Surgery; ATTEND Surgery
PROC: 0D1N0Z4 Bypass Sigmoid Colon to Cutaneous, Open Approach (ICD-10-PCS; 2017-02-09)
PROC: 0DBN0ZZ Excision of Sigmoid Colon, Open Approach (ICD-10-PCS; principal; 2017-02-09 15:13)
DX: K57.20 Diverticulitis of large intestine with perforation and abscess without bleeding (principal); F17.210 Nicotine dependence, cigarettes, uncomplicated; J45.909 Unspecified asthma, uncomplicated; J43.9 Emphysema, unspecified
CPT/HCPCS: 36415; 51798; 74177; 80053; 81001; 81003; 83690; 83735; 85025; 87086; 87150; 88307; 94640; 96361; 96365; 96375; 96376; 99283; 99284; 99285

== ENCOUNTER 2017-05-17 06:47 | Emergency (ER) | payer MEDICAID ==
[2017-05-17] MEDS ORDERED: SODIUM CHLORIDE 0.9% 1,000 ML IV ONE ×2 (07:12→11:12)
[2017-05-17] MEDS ORDERED: ONDANSETRON 4 MG/2 ML VIAL IVP STA ×3 (07:12→12:29)
[2017-05-17] MEDS ORDERED: KETOROLAC 60 MG/2 ML VIAL IVP STA (07:12)
--- NOTE | 2017-05-17 07:15 | ED Physician Documentation ---
PD HPI ABD PAIN - Stated complaint Stated Complaint: ABD PAIN - Chief complaint Chief Complaint: Abd Pain - History obtained from History obtained from: Patient, Family - History of Present Illness Timing - onset: Enter time (0500), Yesterday Timing - duration: Days (1) Timing - details: Abrupt onset, Still present Quality: Sharp, Pain Location: LUQ Radiation: Left flank Improved by: Other (nothing) Worsened by: Other (nothing) Associated symptoms: Nausea, Vomiting Similar symptoms before: Diagnosis (diverticuilitis) Recently seen: Not recently seen - Additional information Additional information: 47-year-old male with a history of ruptured diverticula in February of this year was well last week and yesterday morning at 5:00 he developed acute left flank pain radiating to his left lower quadrant. He has had severe pain nausea and vomiting. He does not have specific modifying factors for his pain. Review of Systems Constitutional: denies: Fever Eyes: denies: Decreased vision Ears: denies: Ear pain Nose: denies: Congestion Throat: denies: Sore throat Cardiac: denies: Chest pain / pressure, Palpitations Respiratory: denies: Dyspnea, Cough GI: reports: Abdominal Pain, Nausea, Vomiting : denies: Dysuria, Frequency Skin: denies: Rash Musculoskeletal: reports: Back pain. denies: Neck pain Neurologic: denies: Generalized weakness, Focal weakness, Numbness PD PAST MEDICAL HISTORY - Past Medical History Past Medical History: Yes Cardiovascular: None Respiratory: Asthma Neuro: None Endocrine/Autoimmune: None GI: Diverticulitis Psych: None Musculoskeletal: None - Past Surgical History Past Surgical History: Yes General: Bowel surgery - Present Medications Home Medications: Ambulatory Orders Medication Instructions Recorded Confirmed Ketorolac [Toradol] 10 mg PO Q6H #20 tablet 02/14/17 02/21/17 Levofloxacin [Levaquin] 500 mg PO DAILY 02/21/17 02/21/17 metroNIDAZOLE [Metronidazole] 250 mg PO QID 02/21/17 02/21/17 HYDROcod/ACETAM 5/325 [[place] 5/325] 1 - 2 ea PO Q6H PRN #15 tablet 05/17/17 Tamsulosin [Flomax] 0.4 mg PO DAILY #10 capsule 05/17/17 - Allergies Allergies/Adverse Reactions: Allergies Allergy/AdvReac Type Severity Reaction Status Date / Time No Known Drug Allergies Allergy Verified 05/17/17 06:58 - Social History Does the pt smoke?: No Smoking Status: Former smoker Does the pt drink ETOH?: No Does the pt have substance abuse?: Yes Substance Use and Type: Marijuana - Immunizations Immunizations are current?: No Immunizations: TDAP >10years/unknown - POLST Patient has POLST: No PD ED PE NORMAL - Vitals Vital signs reviewed: Yes (Hypertensive marked) - General General: Alert and oriented X 3, Well developed/nourished, Other (47-year-old male grunting in pain.) - HEENT HEENT: Atraumatic, PERRL, EOMI - Neck Neck: Supple, no meningeal sign - Cardiac Cardiac: RRR, No murmur - Respiratory Respiratory: No respiratory distress, Clear bilaterally - Abdomen Abdomen: Normal bowel sounds, Soft, Non tender, Other (There is a well-healed midline scar without inflammation and a pouch with brown stool.) - Back Back: No CVA TTP, No spinal TTP - Derm Derm: Normal color, No rash - Extremities Extremities: No deformity, No edema - Neuro Neuro: No motor deficit, No sensory deficit Eye Opening: Spontaneous Motor: Obeys Commands Verbal: Oriented GCS Score: 15 - Psych Psych: Normal mood, Normal affect Results - Vitals Vitals: Vital Signs - 24 hr 05/17/17 05/17/17 05/17/17 06:55 12:21 14:02 Temperature 36.5 C 37.2 C 36.6 C Heart Rate 48 L 64 74 Respiratory 19 16 16 Rate Blood Pressure 177/121 H 146/108 H 144/104 H O2 Saturation 100 96 96 Oxygen O2 Source Room air - Labs Labs: Laboratory Tests 05/17/17 05/17/17 05/17/17 08:27 08:27 08:27 WBC 17.3 H RBC 5.63 Hgb 16.7 Hct 48.6 MCV 86.3 MCH 29.7 MCHC 34.4 RDW 14.2 Plt Count 197 MPV 8.2 Neut # 15.7 H Lymph # 1.1 L [place] # 0.4 Eos # 0.0 Baso # 0.0 Absolute Nucleated RBC 0.02 Nucleated RBC % 0.1 Sodium 141 Potassium 3.7 Chloride 102 Carbon Dioxide 23 Anion Gap 16.0 H BUN 15 Creatinine 1.0 Estimated GFR (MDRD) 81 L Glucose 142 H Calcium 9.8 Total Bilirubin 0.8 AST 36 ALT 46 Alkaline Phosphatase 64 Troponin I < 0.04 Total Protein 8.1 Albumin 5.1 Globulin 3.0 Albumin/Globulin Ratio 1.7 Lipase 24 Urine Color Urine Clarity Urine pH Ur Specific [place] Urine Protein Urine Glucose (UA) Urine Ketones Urine Occult Blood Urine Nitrite Urine Bilirubin Urine Urobilinogen Ur Leukocyte Esterase Urine RBC Urine WBC Ur Epithelial Cells Ur Squamous Epith Cells Amorphous Sediment Urine Bacteria Ur Microscopic Review Urine Culture Comments 05/17/17 05/17/17 11:15 12:42 WBC RBC Hgb Hct MCV MCH MCHC RDW Plt Count MPV Neut # Lymph # [place] # Eos # Baso # Absolute Nucleated RBC Nucleated RBC % Sodium Potassium Chloride Carbon Dioxide Anion Gap BUN Creatinine Estimated GFR (MDRD) Glucose Calcium Total Bilirubin AST ALT Alkaline Phosphatase Troponin I Total Protein Albumin Globulin Albumin/Globulin Ratio Lipase Urine Color YELLOW YELLOW Urine Clarity [place] Urine pH 6.0 6.0 Ur Specific [place] >=1.030 H 1.025 Urine Protein 30 H 30 H Urine Glucose (UA) NEGATIVE NEGATIVE Urine Ketones 40 H 15 H Urine Occult Blood LARGE H LARGE H Urine Nitrite NEGATIVE NEGATIVE Urine Bilirubin NEGATIVE NEGATIVE Urine Urobilinogen 0.2 (NORMAL) 0.2 (NORMAL) Ur Leukocyte Esterase NEGATIVE NEGATIVE Urine RBC TNTC H TNTC H Urine WBC 6-10 H 0-3 Ur Epithelial Cells RARE Transitional FEW Transitional Ur Squamous Epith Cells MOD Squamous H MOD Squamous H Amorphous Sediment Marked Urine Bacteria Few Many H Ur Microscopic Review INDICATED INDICATED Urine Culture Comments NOT INDICATED NOT INDICATED - Rads (name of study) CT abdomen pelvis without Radiology: Prelim report reviewed (Impression: 1. Approximate 7 mm calcification within the left proximal ureter with associated mild hydronephrosis. A few other bilateral small renal stones are also present.), EMP read indepedently, See rad report Procedures - Bedside sono Bedside sono by EMP: With use of bedside ultrasound the left kidney is imaged there is evidence of hydronephrosis and the kidney is sonographically nontender.An IV is begun patient is administered a liter of saline 30 mg of Toradol and 4 mg of Zofran intravenously. A CT scan of the abdomen pelvis without contrast is ordered. PD MEDICAL DECISION MAKING - ED course Complexity details: reviewed old records, reviewed results, re-evaluated patient , considered differential, d/w patient, d/w family ED course: 47-year-old male with a recent diverticulitis with perforation appears to have healed well from his perforation and yesterday had sudden onset of left flank pain. His presentation (sudden onset of non-modifieable left flank pain)was consistent with kidney stone and on bedside ultrasound exam there was presence of hydronephrosis on the left side. A CT scan confirmed presence of a 7 mm stone in the proximal ureter.The patient had good relief of this pain with use of Toradol and Zofran and he was administered a liter of saline. He has return of the pain and requires dilaudid 1mg IV and a repeat dose as we are awaiting urinalysis. His initial urine was concerning for infection with 6-10wbc's and this was repeated as it did not make grade for culture and the repeat was without the wbc's. He is treated conservatively and he has had this problem previously. He will seek follow up in [place]. Departure - Departure Disposition: 01 Home, Self Care Clinical Impression: Ureterolithiasis Condition: Stable Instructions: ED Stone Renal W Colic Follow-Up: Shabbir Pierce MD [Provider Admit Priv/Credential] - Prescriptions: HYDROcod/ACETAM 5/325 [[place] 5/325] 1 - 2 ea PO Q6H PRN #15 tablet PRN Reason: Pain Tamsulosin [Flomax] 0.4 mg PO DAILY #10 capsule Comments: Today in the Emergency Department your blood pressure was elevated. This can happen from the stress of the visit itself, from a current illness or circumstance or from uncontrolled hypertension. If you take blood pressure medications take your usual mediations, have your blood pressure re-checked in an appropriate setting and follow up any elevation with your primary care doctor. Discharge Date/Time: 05/17/17 14:08
[2017-05-17] MEDS ORDERED: ONDANSETRON 4 MG/2 ML VIAL ONE (07:37)
[2017-05-17] MEDS ORDERED: KETOROLAC 30 MG/ML VIAL ONE (07:37)
--- NOTE | 2017-05-17 08:02 | CT Preliminary Report ---
Exam: CT ABDOMEN/PELVIS W/O IMPRESSION: 1. Approximate 7 mm calcification within the left proximal ureter with associated mild hydronephrosis . A few other bilateral small renal stones are also present. [facility] SITE ID: [id number]
--- NOTE | 2017-05-17 08:05 | CT Report ---
EXAM: CT ABDOMEN AND PELVIS (CT KUB) EXAM DATE: 05/17/2017 07:35 AM. CLINICAL HISTORY: Left flank pain hx/o diverticulitis. COMPARISONS: CT 02/09/2017. TECHNIQUE: Routine axial helical CT imaging was performed through the abdomen and pelvis without IV c ontrast. Reconstructions: Coronal and sagittal. In accordance with CT protocol optimization, one or more of the following dose reduction techniques w ere utilized for this exam: automated exposure control, adjustment of mA and/or KV based on patient s ize, or use of iterative reconstructive technique. FINDINGS: Lung Bases: Minimal linear atelectasis/scarring. Right Kidney/Ureter: Small calcification at the upper pole. No hydronephrosis. No ureteral calcificat ion. No contour deforming mass. Left Kidney/Ureter: Approximate 7 mm calcification at the proximal ureter with mild associated hydron ephrosis and minimal perinephric stranding. A few punctate calcifications noted within the kidney at the lower pole. Other Solid Organs: Noncontrast images of the solid organs are grossly unremarkable. Gallbladder/Bile Ducts: Unremarkable. Peritoneal Cavity: No bowel obstruction. New left anterior abdominal wall ostomy is present. No acute focal inflammatory change surrounding the bowel. Rectal stump appears unremarkable. No free air. No discrete collection. No bulky adenopathy. Pelvic Organs: Urinary bladder is incompletely distended with no calcifications within it. Small fat- containing left inguinal hernia. Prostate appears unremarkable. Vasculature: Unremarkable. Other: None. IMPRESSION: 1. Approximate 7 mm calcification within the left proximal ureter with associated mild hydronephrosis . A few other bilateral small renal stones are also present. [facility] Referring Provider Line: [phone] SITE ID: [id number]
[2017-05-17 08:34] LABS: BASOPHILS % (AUTO) 0.2 %; EOSINOPHILS % (AUTO) 0.1 %; HCT - HEMATOCRIT 48.6 % (42.0-52.0); HGB - HEMOGLOBIN 16.7 g/dL (14.0-18.0); LYMPHOCYTES # (AUTO) 1.1 10^3/uL (1.5-3.5); LYMPHOCYTES % (AUTO) 6.2 %; MEAN CORPUSCULAR HEMOGLOBIN 29.7 pg (27.0-31.0); MEAN CORPUSCULAR HGB CONC 34.4 g/dL (32.0-36.0); MEAN CORPUSCULAR VOLUME 86.3 fL (80.0-94.0); MEAN PLATELET VOLUME 8.2 fL (7.4-11.4); MONOCYTES # (AUTO) 0.4 10^3/uL (0.0-1.0); MONOCYTES % (AUTO) 2.4 %; NEUTROPHILS # (AUTO) 15.7 10^3/uL (1.5-6.6); NEUTROPHILS % (AUTO) 91.1 %; NUCLEATED RED BLOOD CELLS AUTO 0.1 /100WBC; RED BLOOD COUNT 5.63 10^6/uL (4.70-6.10); RED CELL DISTRIBUTION WIDTH 14.2 % (12.0-15.0); UNCORRECTED WHITE BLOOD COUNT 17.3 x10^3/uL; WHITE BLOOD COUNT 17.3 x10^3/uL (4.8-10.8)
[2017-05-17 08:47] LABS: ALBUMIN/GLOBULIN RATIO 1.7 (1.0-2.2); BILIRUBIN,TOTAL 0.8 mg/dL (0.2-1.0); CALCIUM 9.8 mg/dL (8.5-10.3); POTASSIUM 3.7 mmol/L (3.5-5.0); TOTAL PROTEIN 8.1 g/dL (6.7-8.2)
[2017-05-17] MEDS ORDERED: HYDROmorphone 1 MG/ML SYRINGE IVP STA ×2 (09:46→12:06)
[2017-05-17 12:09] LABS: BILIRUBIN,URINE NEGATIVE (NEGATIVE); UA w/ MICROSCOPIC CHARGE YES
[2017-05-17 12:19] LABS: UR CULTURE IF IND NOT INDICATED
[2017-05-17 13:00] LABS: BILIRUBIN,URINE NEGATIVE (NEGATIVE); UA w/ MICROSCOPIC CHARGE YES
[2017-05-17 13:29] LABS: UR CULTURE IF IND NOT INDICATED; WBC,URINE 0-3 /HPF (0-3)
[2017-05-17 14:04] VITALS: BP 144/104
== END 2017-05-17 14:08 | disposition home or self-care (01) ==
LOC: ED 06:47
DX: N13.2 Hydronephrosis with renal and ureteral calculous obstruction (principal); R03.0 Elevated blood-pressure reading, without diagnosis of hypertension; J45.909 Unspecified asthma, uncomplicated; Z87.19 Personal history of other diseases of the digestive system; Z87.891 Personal history of nicotine dependence
CPT/HCPCS: 36415; 74176; 80053; 81001; 83690; 84484; 85025; 96361; 96374; 96375; 96376; 99283; 99285; J1170; 81003; 87086

== ENCOUNTER 2017-05-24 10:35 | Emergency (ER) | payer MEDICAID ==
[2017-05-24 11:01] LABS: BILIRUBIN,URINE NEGATIVE (NEGATIVE)
[2017-05-24 11:03] LABS: UA w/ MICROSCOPIC CHARGE YES
[2017-05-24 11:21] LABS: UR CULTURE IF IND NOT INDICATED; WBC,URINE 0-3 /HPF (0-3)
[2017-05-24] MEDS ORDERED: ONDANSETRON 4 MG/2 ML VIAL IVP STA (11:31)
[2017-05-24] MEDS ORDERED: HYDROmorphone 1 MG/ML SYRINGE IVP STA (11:31)
[2017-05-24] MEDS ORDERED: KETOROLAC 60 MG/2 ML VIAL IVP STA (11:31)
[2017-05-24 11:35] LABS: BASOPHILS # (AUTO) 0.1 10^3/uL (0.0-0.1); BASOPHILS % (AUTO) 0.7 %; EOSINOPHILS # (AUTO) 0.1 10^3/uL (0.0-0.7); EOSINOPHILS % (AUTO) 0.9 %; HCT - HEMATOCRIT 47.2 % (42.0-52.0); HGB - HEMOGLOBIN 16.5 g/dL (14.0-18.0); LYMPHOCYTES # (AUTO) 2.1 10^3/uL (1.5-3.5); LYMPHOCYTES % (AUTO) 17.2 %; MEAN CORPUSCULAR HEMOGLOBIN 29.6 pg (27.0-31.0); MEAN CORPUSCULAR HGB CONC 35.1 g/dL (32.0-36.0); MEAN CORPUSCULAR VOLUME 84.5 fL (80.0-94.0); MEAN PLATELET VOLUME 8.2 fL (7.4-11.4); MONOCYTES # (AUTO) 0.9 10^3/uL (0.0-1.0); NEUTROPHILS # (AUTO) 9.2 10^3/uL (1.5-6.6); NEUTROPHILS % (AUTO) 74.2 %; NUCLEATED RED BLOOD CELLS AUTO 0.1 /100WBC; RED BLOOD COUNT 5.59 10^6/uL (4.70-6.10); RED CELL DISTRIBUTION WIDTH 14.2 % (12.0-15.0); UNCORRECTED WHITE BLOOD COUNT 12.4 x10^3/uL; WHITE BLOOD COUNT 12.4 x10^3/uL (4.8-10.8)
[2017-05-24 11:45] LABS: ALBUMIN/GLOBULIN RATIO 1.4 (1.0-2.2); BILIRUBIN,TOTAL 0.9 mg/dL (0.2-1.0); CALCIUM 9.9 mg/dL (8.5-10.3); CREATININE 1.5 mg/dL (0.6-1.2); POTASSIUM 3.9 mmol/L (3.5-5.0); TOTAL PROTEIN 8.7 g/dL (6.7-8.2)
--- NOTE | 2017-05-24 12:19 | XRAY Preliminary Report ---
Exam: XR ABDOMEN 1 VIEW IMPRESSION: 1. Proximal to mid left ureteral stone is slightly distal to location on recent CT 05/17/2017. [facility] SITE ID: [id number]
--- NOTE | 2017-05-24 12:22 | XRAY Report ---
EXAM: ABDOMEN RADIOGRAPHY EXAM DATE: 05/24/2017 11:50 AM. CLINICAL HISTORY: Position of left ureteral stone. COMPARISON: Abdominal pelvic CT 05/17/2017. TECHNIQUE: 1 view. FINDINGS: Bowel Gas Pattern: Prominent stool within right hemicolon. No dilated bowel. No pneumatosis. Other: Increased density along left lateral tip/cortex of left L2 transverse process as on prior CT. 2 mm asymmetric density projecting along superior tip of left L4 transverse process. This probably co rresponds to recently demonstrated proximal left ureteral stone. IMPRESSION: 1. Proximal to mid left ureteral stone is slightly distal to location on recent CT 05/17/2017. [facility] Referring Provider Line: [phone] SITE ID: [id number]
--- NOTE | 2017-05-24 12:46 | ED Physician Documentation ---
PD HPI ABD PAIN - Stated complaint Stated Complaint: BACK LT SIDE PX - Chief complaint Chief Complaint: Abd Pain - History obtained from History obtained from: Patient - History of Present Illness Timing - onset: How many weeks ago (1) Timing - details: Still present, Intermittant Quality: Pain Location: Other (left flank) Worsened by: Other (nothing) Associated symptoms: Nausea. No: Fever, Vomiting Similar symptoms before: Diagnosis (Seen here one week ago and diagnosed with 7 mm left proximal ureteral stone.) Recently seen: Emergency Dept - Additional information Additional information: The patient is a 47-year-old male who presents with left flank pain of one week' s duration. Pain has been intermittent, with associated nausea, without vomiting, fever, or dysuria. He has a history of kidney stones, and was seen here one week ago with similar pain. CT scan at that time revealed a 7 mm left proximal ureteral stone with mild hydronephrosis. He has no primary physician, and when calling urology office, he was advised that next available appointment was several weeks out. Past medical history is significant for colostomy for diverticular disease in February 2017. Review of Systems Constitutional: denies: Fever Nose: denies: Congestion Throat: denies: Sore throat Cardiac: denies: Chest pain / pressure Respiratory: denies: Dyspnea, Cough GI: reports: Abdominal Pain, Nausea. denies: Vomiting : denies: Dysuria Skin: denies: Rash Musculoskeletal: reports: Back pain (left flank). denies: Extremity pain Neurologic: denies: Focal weakness, Numbness, Headache PD PAST MEDICAL HISTORY - Past Medical History Past Medical History: Yes Cardiovascular: None Respiratory: Asthma Neuro: None Endocrine/Autoimmune: None GI: Diverticulitis : Kidney stones Psych: None Musculoskeletal: None Other Past Medical History: colostomy - Past Surgical History Past Surgical History: Yes General: Bowel surgery - Present Medications Home Medications: Ambulatory Orders Medication Instructions Recorded Confirmed Ketorolac [Toradol] 10 mg PO Q6H #20 tablet 02/14/17 05/24/17 Levofloxacin [Levaquin] 500 mg PO DAILY 02/21/17 05/24/17 metroNIDAZOLE [Metronidazole] 250 mg PO QID 02/21/17 05/24/17 HYDROcod/ACETAM 5/325 [[place] 5/325] 1 - 2 ea PO Q6H PRN #15 tablet 05/17/17 Tamsulosin [Flomax] 0.4 mg PO DAILY #10 capsule 05/17/17 05/24/17 Promethazine [Phenergan] 25 - 50 mg PO Q6H PRN #10 tab 05/24/17 Tamsulosin [Flomax] 0.4 mg PO DAILY #7 capsule 05/24/17 oxyCODONE/ACET 5/325 [Percocet 5 1 - 2 tab PO Q4-6H PRN #20 tablet 05/24/17 mg/325 mg] - Allergies Allergies/Adverse Reactions: Allergies Allergy/AdvReac Type Severity Reaction Status Date / Time No Known Drug Allergies Allergy Verified 05/24/17 10:49 - Social History Does the pt smoke?: No Smoking Status: Never smoker Does the pt drink ETOH?: No Does the pt have substance abuse?: Yes - Immunizations Immunizations are current?: No Immunizations: TDAP >10years/unknown - POLST Patient has POLST: No PD ED PE NORMAL - Vitals Vital signs reviewed: Yes (hypertensive) - General General: Alert and oriented X 3, Well developed/nourished - HEENT HEENT: Atraumatic, Moist mucous membranes, Pharynx benign - Neck Neck: No adenopathy, No JVD - Cardiac Cardiac: RRR, No murmur - Respiratory Respiratory: No respiratory distress, Clear bilaterally - Abdomen Abdomen: Soft, Non tender, Other (Colostomy bag in place.) - Back Back: Other (Left CVA tenderness to percussion.) - Derm Derm: No rash - Neuro Neuro: Alert and oriented X 3, No motor deficit, Normal speech Results - Vitals Vitals: Oxygen O2 Source Room air - Labs Labs: Laboratory Tests 05/24/17 05/24/17 05/24/17 10:52 11:06 11:06 WBC 12.4 H RBC 5.59 Hgb 16.5 Hct 47.2 MCV 84.5 MCH 29.6 MCHC 35.1 RDW 14.2 Plt Count 253 MPV 8.2 Neut # 9.2 H Lymph # 2.1 [place] # 0.9 Eos # 0.1 Baso # 0.1 Absolute Nucleated RBC 0.01 Nucleated RBC % 0.1 Sodium 139 Potassium 3.9 Chloride 101 Carbon Dioxide 25 Anion Gap 13.0 BUN 17 Creatinine 1.5 H Estimated GFR (MDRD) 51 L Glucose 105 H Calcium 9.9 Total Bilirubin 0.9 AST 22 ALT 27 Alkaline Phosphatase 65 Total Protein 8.7 H Albumin 5.1 Globulin 3.6 Albumin/Globulin Ratio 1.4 Lipase 21 L Urine Color YELLOW Urine Clarity CLEAR Urine pH 6.0 Ur Specific [place] 1.025 Urine Protein NEGATIVE Urine Glucose (UA) NEGATIVE Urine Ketones 15 H Urine Occult Blood SMALL H Urine Nitrite NEGATIVE Urine Bilirubin NEGATIVE Urine Urobilinogen 0.2 (NORMAL) Ur Leukocyte Esterase NEGATIVE Urine RBC 0-5 Urine WBC 0-3 Ur Squamous Epith Cells NONE SEEN Urine Bacteria None Seen Ur Microscopic Review INDICATED Urine Culture Comments NOT INDICATED - Rads (name of study) 1 view abdomen Radiology: Prelim report reviewed, EMP read contemporaneously, See rad report ( Proximal to mid left ureteral stone is slightly distal to location on recent CT 05/17/2017.) PD MEDICAL DECISION MAKING - ED course Complexity details: reviewed old records, reviewed results, re-evaluated patient , considered differential, d/w patient, d/w family ED course: The patient's presentation is most consistent with left sided renal colic, with proximal to mid left ureteral stone seen on KUB. The imaging study reveals the stone to be slightly distal to the previous imaging study 1 week ago. Treatment in the emergency department included administration of hydromorphone 1 mg IV, ketorolac 30 mg IV, and ondansetron 4 mg IV. His symptoms markedly improved with the above treatment. He is being discharged with prescriptions for Flomax, Phenergan, and Percocet, 20 tablets. I discussed his condition with Dr. Brown, urologist with [facility]. She will see the patient in outpatient follow-up. Imaging studies were transmitted to [facility]. I discussed with the patient and his family the importance of urology follow-up, as well as potentially worrisome signs or symptoms that should prompt reevaluation in the emergency department. Departure - Departure Disposition: 01 Home, Self Care Clinical Impression: Renal colic on left side, Ureterolithiasis Condition: Stable Instructions: ED Stone Renal W Colic Follow-Up: Johnna Brown MD [Physician No Access] - Prescriptions: oxyCODONE/ACET 5/325 [Percocet 5 mg/325 mg] 1 - 2 tab PO Q4-6H PRN #20 tablet PRN Reason: Pain Promethazine [Phenergan] 25 - 50 mg PO Q6H PRN #10 tab PRN Reason: Nausea / Vomiting Tamsulosin [Flomax] 0.4 mg PO DAILY #7 capsule Comments: Drink plenty of fluids. Take Flomax daily as prescribed. You can use Phenergan as prescribed if needed for nausea. You can use Percocet as prescribed if needed for pain. Follow up with the urologist. Call to schedule appointment. Return to the emergency department if you develop increasing pain, persistent vomiting, fever with shaking chills, or otherwise worsening symptoms. Discharge Date/Time: 05/24/17 13:37
[2017-05-24 13:15] VITALS: BP 135/100
== END 2017-05-24 13:37 | disposition home or self-care (01) ==
LOC: ED 10:35
DX: N20.1 Calculus of ureter (principal); Z87.442 Personal history of urinary calculi; J45.909 Unspecified asthma, uncomplicated; Z87.19 Personal history of other diseases of the digestive system; Z93.3 Colostomy status
CPT/HCPCS: 36415; 74000; 80053; 81001; 83690; 85025; 96374; 96375; 99283; 99284; J1170; 81003; 87086

== ENCOUNTER 2017-09-11 09:19 | Outpatient (CLI) | payer OTHER ==
[2017-09-11 09:34] LABS: BASOPHILS # (AUTO) 0.1 10^3/uL (0.0-0.1); BASOPHILS % (AUTO) 0.5 %; EOSINOPHILS # (AUTO) 0.2 10^3/uL (0.0-0.7); EOSINOPHILS % (AUTO) 2.5 %; HGB - HEMOGLOBIN 16.8 g/dL (14.0-18.0); LYMPHOCYTES # (AUTO) 2.2 10^3/uL (1.5-3.5); LYMPHOCYTES % (AUTO) 23.7 %; MEAN CORPUSCULAR HEMOGLOBIN 30.4 pg (27.0-31.0); MEAN CORPUSCULAR HGB CONC 35.3 g/dL (32.0-36.0); MEAN CORPUSCULAR VOLUME 86.1 fL (80.0-94.0); MEAN PLATELET VOLUME 7.9 fL (7.4-11.4); MONOCYTES # (AUTO) 0.7 10^3/uL (0.0-1.0); MONOCYTES % (AUTO) 7.5 %; NEUTROPHILS # (AUTO) 6.2 10^3/uL (1.5-6.6); NEUTROPHILS % (AUTO) 65.8 %; PLT - PLATELET COUNT 197 10^3/uL (130-450); RED BLOOD COUNT 5.53 10^6/uL (4.70-6.10); RED CELL DISTRIBUTION WIDTH 13.7 % (12.0-15.0); WHITE BLOOD COUNT 9.4 x10^3/uL (4.8-10.8)
[2017-09-11 09:52] LABS: CALCIUM 9.5 mg/dL (8.5-10.3); CREATININE 0.9 mg/dL (0.6-1.2)
== END 2017-09-11 09:20 | disposition home or self-care (01) ==
LOC: LAB 09:19
PROVIDERS: ATTEND Nurse Anesthetist, Certified Registered
DX: K57.20 Diverticulitis of large intestine with perforation and abscess without bleeding (principal); Z93.3 Colostomy status
CPT/HCPCS: 36415; 80048; 85025

== ENCOUNTER 2017-09-17 10:15 | Inpatient (IN) | payer OTHER ==
[2017-09-17] MEDS ORDERED: LACTATED RINGERS 1,000 ML IV ONE ×3 (11:17→18:30)
[2017-09-17] MEDS ORDERED: BUPIVACAINE 0.5% PF 30 ML VIAL ONE (14:24)
[2017-09-17] MEDS ORDERED: BUPIVACAINE 0.5% PF 30 ML VIAL INFIL ONE (15:01)
[2017-09-17] MEDS ORDERED: MIDAZOLAM 2 MG/2 ML VIAL IVP ONE (16:00)
[2017-09-17] MEDS ORDERED: ONDANSETRON 4 MG/2 ML VIAL IVP ONE (16:00)
[2017-09-17] MEDS ORDERED: PROPOFOL 200 MG/20 ML VIAL IVP ONE (16:00)
[2017-09-17] MEDS ORDERED: NEOSTIGMINE 1 MG/1 ML 10 ML MDV IVP ONE (16:00)
[2017-09-17] MEDS ORDERED: ACETAMINOPHEN 1,000 MG/100 ML 100 ML IV ONE (16:00)
[2017-09-17] MEDS ORDERED: DEXAMETHASONE 4 MG/ML VIAL IVP ONE (16:00)
[2017-09-17] MEDS ORDERED: HYDROmorphone 1 MG/ML SYRINGE IVP ONE (16:00)
[2017-09-17] MEDS ORDERED: ROCURONIUM 50 MG/5 ML VIAL IVP ONE (16:00)
[2017-09-17] MEDS ORDERED: fentaNYL 250 MCG/5 ML VIAL IVP ONE (16:00)
[2017-09-17] MEDS ORDERED: GLYCOPYRROLATE 1 MG/5 ML VIAL IVP ONE (16:00)
[2017-09-17] MEDS ORDERED: LIDOCAINE-MPF 2% 5 ML VIAL IM ONE (16:00)
--- NOTE | 2017-09-17 20:08 | OPERATIVE REPORT ---
Operative Report - General Admit Date: 09/17/17 Planned Procedure: SILS colostomy takedown Pre-Op Diagnosis: Colostomy Procedure Performed: SILS colostomy takedown with adhesiolysis, placement rescue port and then conversion to open repair of colocolostomy leak with placement of drain Post Op Diagnosis: Same - Procedure Note Primary Surgeon: Clayton Reyes MD Secondary Surgeon: Jeronimo Espinoza MD Anesthesia Provider: Bianca Aden CRNA Anesthesia Technique: General ET tube, Local (30 mL 1/2% marcaine) IV Fluids (mL): 1,200 Estimated Blood Loss (mL): 150 Urine Output (mL): 100 Drain/Tube Type: Alexis drain (19 Fr. Alexis drain) Complications: Colocolostomy with 28 EEA Covidien stapler leaked necessitating conversion to open technique, closure of leak, re-evaluation of anastamosis and placement of a drain - Other Other Information/Narrative: OPERATIVE DESCRIPTION/REPORT: After verbal and written informed consent was obtained detailing the risks of infection, bleeding with all of its risks including transfusion, and the patient was brought to the operative suite and placed initially in the supine position on the operating room table and then once anesthetized in stirrups taking care to pad all extremities. Monitoring devices were applied along with TEDs and pneumatic compressive stockings. The colostomy was sutured closed. Care was taken to avoid pressure points. Prophylactic antibiotics were given. An adequate level of general endotracheal anesthesia was established by [name]. The abdomen was then prepped with ChloraPrep and draped in a sterile fashion. A "time in" then confirmed that the patient was identified with 3 identifiers ( name, date and medical record number), the history and physical was in the chart, the signed consent confirming the procedure was in the chart, the patient was in the correct position, the aforementioned prophylactic measures were in place or given, we had the correct personnel and equipment to complete the procedure and that anesthesia, surgery and nursing were given an opportunity to express any concerns. An elliptical incision was made and dissection down to the colon and the fascia was completed using Bovie electrocautery. Subcutaneous adhesions were taken again using Bovie electrocautery until the fascia was clearly identified around the colon. Adhesions of the colon to the fascia were similarly taken using Bovie electrocautery until I was able to enter the abdomen proper. Intraloop adhesions and adhesions to the anterior abdominal wall were taken down using Bovie electrocautery. The colostomy was removed using an application of a 55 mm MARK stapler. The colonic stump was then dropped into the abdomen. I was then able to place the GelPort in position without the ring impinging on any bowel. One 12 mm and two 10 mm ports were placed in the Gelport in a triangular fashion, and the Gelport was attached to the ring. The abdominal cavity was insufflated with carbon dioxide to steady-state pressure of 15 mmHg. At this point, the patient was placed in reverse Trendeleberg position with the right lateral decubitus tilt and the rectum was found and the identifying suture seen and used for retraction. There were significant adhesions of the small bowel into the pelvis and these were taken down using traction and countertraction as well as laparoscopic scissors in this manner is able to remove the small bowel from the pelvis and allow me to view the rectal stump. Additional mobilization along the pelvic sidewalls was performed using LigaSure in order to allow the rectal stump to come up further.Once I was satisfied that the colon could be anastamosed without any tension the Gelport was removed and the colostomy was grasped and gently brought out through the skin incision. A reusable automatic purse string device was placed across the colon and the pursestring created with the passage of a 3-0 Prolene on a Jack needle through the device. The bowel was transected with a scalpel and sent off the operative field. The pursestring was opened and a 28 mm anvil from an EEA stapler placed in the open end and the pursestring tied tight around the post. This was then dropped into the abdomen and Gelport re-applied and the abdomen re-insufflated. With the pneumoperitoneum re-established and after the anus and rectum were serially dilated with the aid of a water soluble lubricant, the EEA stapler was placed transanally by Dr. Joe Espinoza with the aid of a water soluble lubricant and the spike brought out under direct vision. Unfortunately there was a problem with the safety on the staple and this satpler had to be removed. Another stapler was obtained and also placed transanally and with significnat skill Dr. Espinoza was able to place the post of the stapler through the exact same hole. The post of the anvil was then placed over the spike and the stapler screwed down tight and fired thus creating the colocolostomy. With the pelvis filled with sterile saline, the rectum was filled with air and significant leak of air was noted. The saline was removed. It was clear that the failure of the anastamosis was anterior. The choices included laparoscopic suture of the defect with diverting ileostomy, simple diverting ileostomy without suturing the defect, opening the patient and suturing the defect versus opeing the patient and performing a diverting ileostomy. Of all of these choices opening the patient and closing the defect primarily was the only one that would result in no ostomy and is the decision I made. A midline infra-umbilical incision was made tracing the previous incision and taking it down to the fascia initially and peritoneum secondarily with a scalpel and Bovie electrocautery. The abdomen was entered without incident. A Bookwalter retractor was obtained and put into place to allow for proper visualization. With excellent visualization I was able to place for 3-0 Vicryl sutures across the anastomotic defect. These were done as full-thickness sutures. There is no compromise of the lumen. Again I filled the abdomen with warm sterile saline and Dr. Espinoza again placed care up inside the patient's distal rectum and across the anastomosis with the aid of a proctoscope. This time there was no leak. We tried it with holding my fingers across the proximal colon to increase the pressure as well as not and again there was no leak. Now confident that the anastomosis was intact, the abdomen was copiously irrigated using warm sterile saline. Visual examination of the anastomosis found it to be intact. There was no bleeding intra-abdominally. Due to the fact that we had a leak a separate stab incision was made in the right lower quadrant and through the separate stab incision was placed a 19 Upper Sorbian Alexis drain which was then guided into the pelvis along the left abdominal wall. This was secured to the skin using a 3-0 nylon which was Adan sandaled about the drain. The fascia at the midline was closed using O looped PDS in a running fashion starting superiorly as well as inferiorly and running the suture to tie in the middle. At the colostomy site the posterior fascia and peritoneum were closed using a running looped 0 PDS. The anterior fascia was used using a running 0 PDS suture. Meticulous hemostasis was obtained using Bovie electrocautery. The skin incision at the midline was approximated using skin charmaine and was close completely. Whereas, the skin at the colostomy site was closed on the lateral and medial thirds and was packed using a Betadine soaked 1 inch gauze. This gauze to be removed in 2 daysl. At this point a time out was performed that confirmed that all the counts were correct, the procedure that was performed, the blood loss, the IV fluids administered, and the patients condition. The prep was washed off and Benzoin and steristrips were applied. Having tolerated the procedure well, the patient was subsequently extubated and taken to recovery room in good and stable condition. Imimtekon disclaimer: This document was created in part using voice recognition technology. Because of the inherent limitations of the system ([email or web address]'s [employer] user manual states that the licensee understands that speech recognition is a statistical process and that recognition errors are inherent in the process), occasional same sounding word substitutions and grammatical errors do occur and persist despite proofreading. Please read this document for context.
[2017-09-17] MEDS ORDERED: METOCLOPRAMIDE 10 MG/2 ML VIAL IVP PRN (20:25)
[2017-09-17] MEDS ORDERED: ERTAPENEM 1 GM in SODIUM CHLORIDE 0.9% MINIBAG 100 ML IV SCH (21:00)
[2017-09-17] MEDS: HYDROmorphone 1 MG/ML CARPUJECT IVP PRN (21:50)
[2017-09-17] MEDS: SODIUM CHLORIDE FLUSH 0.9% 10 ML SYRINGE IVP PRN ×2 (21:51→22:12)
[2017-09-17] MEDS: ACETAMINOPHEN 1,000 MG/100 ML 100 ML IV SCH (21:53)
[2017-09-17] MEDS: D5NS W/20 MEQ KCL 1,000 ML IV SCH (21:53)
[2017-09-18] MEDS: HYDROmorphone 1 MG/ML CARPUJECT IVP PRN ×6 (00:23→19:11)
[2017-09-18] MEDS: SODIUM CHLORIDE FLUSH 0.9% 10 ML SYRINGE IVP SCH ×3 (00:23→19:11)
[2017-09-18] MEDS: ACETAMINOPHEN 1,000 MG/100 ML 100 ML IV SCH ×4 (03:21→21:46)
[2017-09-18 05:23] LABS: BASOPHILS % (AUTO) 0.1 %; LYMPHOCYTES % (AUTO) 6.8 %; MEAN CORPUSCULAR HEMOGLOBIN 29.2 pg (27.0-31.0); MEAN CORPUSCULAR HGB CONC 33.2 g/dL (32.0-36.0); MEAN CORPUSCULAR VOLUME 87.9 fL (80.0-94.0); MEAN PLATELET VOLUME 8.4 fL (7.4-11.4); MONOCYTES # (AUTO) 0.5 10^3/uL (0.0-1.0); MONOCYTES % (AUTO) 3.6 %; NEUTROPHILS # (AUTO) 13.2 10^3/uL (1.5-6.6); NEUTROPHILS % (AUTO) 89.5 %; PLT - PLATELET COUNT 226 10^3/uL (130-450); RED CELL DISTRIBUTION WIDTH 14.2 % (12.0-15.0); WHITE BLOOD COUNT 14.8 x10^3/uL (4.8-10.8)
[2017-09-18 05:37] LABS: ALBUMIN 3.8 g/dL (3.2-5.5); ALBUMIN/GLOBULIN RATIO 1.4 (1.0-2.2); BILIRUBIN,TOTAL 0.8 mg/dL (0.2-1.0); CALCIUM 8.1 mg/dL (8.5-10.3); CREATININE 0.9 mg/dL (0.6-1.2); TOTAL PROTEIN 6.5 g/dL (6.7-8.2)
[2017-09-18] MEDS: PANTOPRAZOLE 40 MG VIAL IVP SCH (07:51)
[2017-09-18] MEDS: SODIUM CHLORIDE FLUSH 0.9% 10 ML SYRINGE IVP PRN ×3 (07:51→23:34)
[2017-09-18] MEDS: ENOXAPARIN 40 MG/0.4 ML SYRINGE SUBQ SCH (08:43)
[2017-09-18] MEDS: D5NS W/20 MEQ KCL 1,000 ML IV SCH ×2 (08:44→19:11)
--- NOTE | 2017-09-18 08:57 | PROVIDER PROGRESS NOTE ---
Subjective - General Admit Date: 09/17/17 Procedure Date: 09/17/17 Post Op Days: 1 Procedure Performed: SILS takedown colostomy with recue port converted to open procedure to addr - Review of Systems Wound/Incisions: positive: Other (Midline dressing is dry and intact. The colostomy site has Betadine soaked gauze and has (understandable) brown drainage on gauze.) General: positive: No symptoms, Other (States he has abdominal pain.) HEENT: positive: No symptoms Pulmonary: positive: No symptoms Cardiovascular: positive: No symptoms Gastrointestinal: positive: No symptoms Genitourinary: positive: No symptoms (Marquez in place.) Musculoskeletal: positive: No symptoms Skin: positive: No symptoms Psychiatric: positive: No symptoms Objective - Patient Data Reviewed Vital Signs: Yes Vital Signs: Vital Signs x48h Temp Pulse Resp BP Pulse Ox 09/18/17 08:02 37.0 C 91 16 142/88 H 91 L 09/18/17 03:30 36.5 C 90 18 142/95 H 95 Weight: Weight 09/16/17 09/17/17 09/18/17 23:59 23:59 23:59 Weight (kg) 98.6 kg Intake & Output: Intake and Output Totals x24h 09/16/17 09/17/17 09/18/17 23:59 23:59 23:59 Intake Total 200 1400 Output Total 370 495 Balance -170 905 - Lab Results Lab Results: 09/18/17 04:38 09/18/17 04:38 Other Lab Results: Lab Results x24hrs 09/18/17 09/18/17 Range/Units 04:38 04:38 WBC 14.8 H (4.8-10.8) x10^3/uL RBC 4.80 (4.70-6.10) 10^6/uL Hgb 14.0 (14.0-18.0) g/dL Hct 42.2 (42.0-52.0) % MCV 87.9 (80.0-94.0) fL MCH 29.2 (27.0-31.0) pg MCHC 33.2 (32.0-36.0) g/dL RDW 14.2 (12.0-15.0) % Plt Count 226 (130-450) 10^3/uL MPV 8.4 (7.4-11.4) fL Neut # 13.2 H (1.5-6.6) 10^3/uL Lymph # 1.0 L (1.5-3.5) 10^3/uL [place] # 0.5 (0.0-1.0) 10^3/uL Eos # 0.0 (0.0-0.7) 10^3/uL Baso # 0.0 (0.0-0.1) 10^3/uL Absolute Nucleated RBC 0.01 x10^3/uL Nucleated RBC % 0.1 /100WBC Sodium 137 (135-145) mmol/L Potassium 3.8 (3.5-5.0) mmol/L Chloride 106 (101-111) mmol/L Carbon Dioxide 22 (21-32) mmol/L Anion Gap 9.0 (6-13) BUN 13 (6-20) mg/dL Creatinine 0.9 (0.6-1.2) mg/dL Estimated GFR (MDRD) 91 (>89) Glucose 180 H (70-100) mg/dL Calcium 8.1 L (8.5-10.3) mg/dL Total Bilirubin 0.8 (0.2-1.0) mg/dL AST 34 (10-42) IU/L ALT 45 (10-60) IU/L Alkaline Phosphatase 50 (42-121) IU/L Total Protein 6.5 L (6.7-8.2) g/dL Albumin 3.8 (3.2-5.5) g/dL Globulin 2.7 (2.1-4.2) g/dL Albumin/Globulin Ratio 1.4 (1.0-2.2) - Current Medications Current Medications: Current Medications Generic Name Dose Route Start Last Admin Trade Name Freq PRN Reason Stop Dose Admin Enoxaparin Sodium 40 mg 09/18/17 09:00 09/18/17 08:43 Lovenox SUBQ 40 mg DAILY CHAITANYA Administration Hydromorphone HCl 0.5 mg 09/17/17 20:25 09/18/17 08:43 Dilaudid Inj Carp IVP 0.5 mg Q1HR PRN Administration PAIN Potassium Chloride/Dextrose/Sod Cl 1,000 mls @ 100 mls/hr 09/17/17 21:00 08:44 IV 100 mls/hr .Q10H CHAITANYA Administration Ertapenem 1 gm/ Sodium 100 mls @ 200 mls/hr 09/17/17 21:00 09/17/17 22:45 Chloride IV Infused Q24H CHAITANYA Infusion Acetaminophen 100 mls @ 400 mls/hr 09/17/17 21:00 09/18/17 08:43 Ofirmev IV 400 mls/hr Q6H CHAITANYA Administration Pantoprazole Sodium 40 mg 09/18/17 07:00 09/18/17 07:51 Protonix IVP 40 mg QDAC CHAITANYA Administration Sodium Chloride 10 ml 09/18/17 01:00 09/18/17 06:28 Normal Saline Flush 0.9% IVP 10 ml 0100,0900,1700 CHAITANYA Administration Sodium Chloride 10 ml 09/17/17 20:25 09/18/17 07:51 Normal Saline Flush 0.9% IVP 10 ml PRN PRN Administration NEEDED PER PROVIDER ORDERS - Physical Exam Wound/Incisions: positive: Other (Midline dressing intact and clean. Betadine on ostomy dressing. Drain is serosanguinous.) General Appearance: positive: Mild distress (Secondary to abdominal pain.) Eyes Bilateral: positive: No lid inflammation, Conjunctivae nml, No scleral icterus, Other (Lazy L eye.) ENT: positive: Dry mucous membranes Neck: positive: Trachea midline Respiratory: positive: Chest non-tender Cardiovascular: positive: Regular rate & rhythm Abdomen: positive: Abnml bowel sounds Extremities: positive: Nml appearance Neurologic/Psychiatric: positive: Oriented x3 Impression/Plan - Problem List Problem List: D1 s/p SILS colostomy takedown with rescue port converted to open operation to repair anastamotic leak and placement of drain. Continue ERAS protocol. Ambulate at least 3 times today in halls. Additional dose of Invanz due to anastamotic leak then stop. All antibiotics given less than 24 hours after completion of surgery. Await bowel function. Recheck labs in AM.
[2017-09-18] MEDS: ERTAPENEM 1 GM in SODIUM CHLORIDE 0.9% MINIBAG 100 ML IV SCH (15:57)
[2017-09-19] MEDS: SODIUM CHLORIDE FLUSH 0.9% 10 ML SYRINGE IVP SCH ×3 (00:06→16:19)
[2017-09-19] MEDS: HYDROmorphone 1 MG/ML CARPUJECT IVP PRN ×6 (00:07→21:52)
[2017-09-19] MEDS: ONDANSETRON 4 MG/2 ML VIAL IVP PRN ×3 (00:19→16:19)
[2017-09-19] MEDS: SODIUM CHLORIDE FLUSH 0.9% 10 ML SYRINGE IVP PRN ×2 (00:19→05:41)
[2017-09-19] MEDS: ACETAMINOPHEN 1,000 MG/100 ML 100 ML IV SCH ×2 (03:08→08:58)
[2017-09-19 05:29] LABS: BASOPHILS % (AUTO) 0.1 %; EOSINOPHILS % (AUTO) 0.3 %; HGB - HEMOGLOBIN 12.2 g/dL (14.0-18.0); LYMPHOCYTES # (AUTO) 2.2 10^3/uL (1.5-3.5); MEAN CORPUSCULAR HEMOGLOBIN 29.8 pg (27.0-31.0); MEAN CORPUSCULAR HGB CONC 34.1 g/dL (32.0-36.0); MEAN CORPUSCULAR VOLUME 87.4 fL (80.0-94.0); MEAN PLATELET VOLUME 7.9 fL (7.4-11.4); MONOCYTES # (AUTO) 0.8 10^3/uL (0.0-1.0); MONOCYTES % (AUTO) 6.3 %; NEUTROPHILS # (AUTO) 9.3 10^3/uL (1.5-6.6); NEUTROPHILS % (AUTO) 75.3 %; PLT - PLATELET COUNT 200 10^3/uL (130-450); RED BLOOD COUNT 4.09 10^6/uL (4.70-6.10); WHITE BLOOD COUNT 12.4 x10^3/uL (4.8-10.8)
[2017-09-19] MEDS: PANTOPRAZOLE 40 MG VIAL IVP SCH (05:40)
[2017-09-19 05:46] LABS: ALBUMIN 3.7 g/dL (3.2-5.5); ALBUMIN/GLOBULIN RATIO 1.6 (1.0-2.2); BILIRUBIN,TOTAL 0.6 mg/dL (0.2-1.0); CALCIUM 8.1 mg/dL (8.5-10.3); CREATININE 0.7 mg/dL (0.6-1.2)
[2017-09-19] MEDS: D5NS W/20 MEQ KCL 1,000 ML IV SCH ×2 (05:56→14:43)
[2017-09-19] MEDS: ENOXAPARIN 40 MG/0.4 ML SYRINGE SUBQ SCH (09:04)
[2017-09-19] MEDS ORDERED: oxyCOD/ACETAMIN 5 MG/325 MG TABLET PO PRN (10:48)
--- NOTE | 2017-09-19 10:52 | PROVIDER PROGRESS NOTE ---
Subjective - General Admit Date: 09/17/17 Procedure Date: 09/17/17 Post Op Days: 2 Procedure Performed: SILS takedown colostomy with rescue port converted to open procedure to add - Review of Systems Wound/Incisions: positive: Other (Midline dressing intact and clean. Betadine on ostomy dressing. Drain is serosanguinous.) Drain Type: Alexis Drain Output Description: 60 mLs so far today - serosanguinous General: positive: No symptoms, Other (States he has abdominal pain.) HEENT: positive: No symptoms Pulmonary: positive: No symptoms Cardiovascular: positive: No symptoms Gastrointestinal: positive: No symptoms Genitourinary: positive: No symptoms (Marquez in place.) Musculoskeletal: positive: No symptoms Skin: positive: No symptoms Psychiatric: positive: No symptoms Objective - Patient Data Reviewed Vital Signs: Yes Vital Signs: Vital Signs x48h Temp Pulse Resp BP Pulse Ox 09/19/17 09:24 36.9 C 96 20 153/106 H 95 Weight: Weight 09/17/17 09/18/17 09/19/17 23:59 23:59 23:59 Weight (kg) 98.6 kg Intake & Output: Intake and Output Totals x24h 09/17/17 09/18/17 09/19/17 23:59 23:59 23:59 Intake Total 200 2966.667 1500 Output Total 370 1160 510 Balance -170 1806.667 990 - Lab Results Lab Results: 09/19/17 04:56 09/19/17 04:56 Other Lab Results: Lab Results x24hrs 09/19/17 09/19/17 Range/Units 04:56 04:56 WBC 12.4 H (4.8-10.8) x10^3/uL RBC 4.09 L (4.70-6.10) 10^6/uL Hgb 12.2 L (14.0-18.0) g/dL Hct 35.7 L (42.0-52.0) % MCV 87.4 (80.0-94.0) fL MCH 29.8 (27.0-31.0) pg MCHC 34.1 (32.0-36.0) g/dL RDW 14.0 (12.0-15.0) % Plt Count 200 (130-450) 10^3/uL MPV 7.9 (7.4-11.4) fL Neut # 9.3 H (1.5-6.6) 10^3/uL Lymph # 2.2 (1.5-3.5) 10^3/uL [place] # 0.8 (0.0-1.0) 10^3/uL Eos # 0.0 (0.0-0.7) 10^3/uL Baso # 0.0 (0.0-0.1) 10^3/uL Absolute Nucleated RBC 0.01 x10^3/uL Nucleated RBC % 0.0 /100WBC Sodium 139 (135-145) mmol/L Potassium 3.6 (3.5-5.0) mmol/L Chloride 110 (101-111) mmol/L Carbon Dioxide 23 (21-32) mmol/L Anion Gap 6.0 (6-13) BUN 8 (6-20) mg/dL Creatinine 0.7 (0.6-1.2) mg/dL Estimated GFR (MDRD) 122 (>89) Glucose 107 H (70-100) mg/dL Calcium 8.1 L (8.5-10.3) mg/dL Total Bilirubin 0.6 (0.2-1.0) mg/dL AST 19 (10-42) IU/L ALT 30 (10-60) IU/L Alkaline Phosphatase 39 L (42-121) IU/L Total Protein 6.0 L (6.7-8.2) g/dL Albumin 3.7 (3.2-5.5) g/dL Globulin 2.3 (2.1-4.2) g/dL Albumin/Globulin Ratio 1.6 (1.0-2.2) - Current Medications Current Medications: Current Medications Generic Name Dose Route Start Last Admin Trade Name Freq PRN Reason Stop Dose Admin Potassium Chloride/Dextrose/Sod Cl 1,000 mls @ 100 mls/hr 09/17/17 21:00 05:56 IV 100 mls/hr .Q10H CHAITANYA Administration Ertapenem 1 gm/ Sodium 100 mls @ 200 mls/hr 09/18/17 15:00 09/18/17 16:30 Chloride IV Infused Q24H CHAITANYA Infusion Ondansetron HCl 4 mg 09/17/17 20:25 09/19/17 05:41 Zofran Inj IVP 4 mg Q6H PRN Administration Nausea / Vomiting Pantoprazole Sodium 40 mg 09/18/17 07:00 09/19/17 05:40 Protonix IVP 40 mg QDAC CHAITANYA Administration Sodium Chloride 10 ml 09/18/17 01:00 09/19/17 05:41 Normal Saline Flush 0.9% IVP 10 ml 0100,0900,1700 CHAITANYA Administration Sodium Chloride 10 ml 09/17/17 20:25 09/19/17 05:41 Normal Saline Flush 0.9% IVP 10 ml PRN PRN Administration NEEDED PER PROVIDER ORDERS - Physical Exam Wound/Incisions: positive: Other (All the dressings were removed and the midline incision is well approximated with skin charmaine. The ostomy site is also well approximated in the medial and lateral thirds and the Betadine soaked 1 inch gauze was removed from the wound with a significant amount of patient discomfort. A dressing was applied upon this. The drain was stripped by me and a clot was removed. The patient was shown how to strip the drain as was the nurse and we agreed that stripping of the drain should occur every 6 hours or so.) General Appearance: positive: No acute distress (Appears better in the evening and even in the morning.) Eyes Bilateral: positive: No lid inflammation, Conjunctivae nml, No scleral icterus Neck: positive: Trachea midline Respiratory: positive: Chest non-tender, No respiratory distress, Breath sounds nml Cardiovascular: positive: Regular rate & rhythm Abdomen: positive: Nml bowel sounds Skin: positive: Color nml Extremities: positive: Nml appearance (Sitting in chair.) Neurologic/Psychiatric: positive: Oriented x3 Impression/Plan - Problem List Problem List: D2 s/p SILS colostomy takedown with rescue port converted to open operation to repair anastamotic leak and placement of drain. Continue ERAS protocol. Ambulate at least 3 times today in halls and doing it. Antibiotics stopped. Bowel function has returned. Will check labs in AM.
[2017-09-19] MEDS: ERTAPENEM 1 GM in SODIUM CHLORIDE 0.9% MINIBAG 100 ML IV SCH (14:39)
[2017-09-19] MEDS: KETOROLAC 10 MG TABLET PO PRN (16:58)
[2017-09-20] MEDS: D5NS W/20 MEQ KCL 1,000 ML IV SCH (00:14)
[2017-09-20] MEDS: KETOROLAC 10 MG TABLET PO PRN (05:44)
[2017-09-20] MEDS: SODIUM CHLORIDE FLUSH 0.9% 10 ML SYRINGE IVP SCH ×2 (05:44→08:39)
[2017-09-20] MEDS: PANTOPRAZOLE 40 MG VIAL IVP SCH (05:44)
[2017-09-20 05:53] LABS: BASOPHILS % (AUTO) 0.4 %; EOSINOPHILS # (AUTO) 0.2 10^3/uL (0.0-0.7); EOSINOPHILS % (AUTO) 2.3 %; HGB - HEMOGLOBIN 12.3 g/dL (14.0-18.0); LYMPHOCYTES # (AUTO) 1.9 10^3/uL (1.5-3.5); LYMPHOCYTES % (AUTO) 22.4 %; MEAN CORPUSCULAR HEMOGLOBIN 29.6 pg (27.0-31.0); MEAN CORPUSCULAR HGB CONC 33.7 g/dL (32.0-36.0); MEAN CORPUSCULAR VOLUME 87.7 fL (80.0-94.0); MEAN PLATELET VOLUME 7.8 fL (7.4-11.4); MONOCYTES # (AUTO) 0.7 10^3/uL (0.0-1.0); MONOCYTES % (AUTO) 8.5 %; NEUTROPHILS # (AUTO) 5.6 10^3/uL (1.5-6.6); NEUTROPHILS % (AUTO) 66.4 %; PLT - PLATELET COUNT 197 10^3/uL (130-450); RED BLOOD COUNT 4.16 10^6/uL (4.70-6.10); RED CELL DISTRIBUTION WIDTH 13.8 % (12.0-15.0); WHITE BLOOD COUNT 8.5 x10^3/uL (4.8-10.8)
[2017-09-20 06:04] LABS: ALBUMIN 3.5 g/dL (3.2-5.5); ALBUMIN/GLOBULIN RATIO 1.5 (1.0-2.2); BILIRUBIN,TOTAL 0.7 mg/dL (0.2-1.0); CALCIUM 8.2 mg/dL (8.5-10.3); CREATININE 0.9 mg/dL (0.6-1.2); TOTAL PROTEIN 5.9 g/dL (6.7-8.2)
[2017-09-20 08:22] VITALS: BP 150/101
[2017-09-20] MEDS: HYDROmorphone 1 MG/ML CARPUJECT IVP PRN (09:00)
--- NOTE | 2017-09-20 11:20 | Discharge Plan ---
Discharge Plan Disposition: 01 Home, Self Care Condition: Good Prescriptions: Ketorolac [Toradol] 10 mg PO Q6HR PRN #20 tablet PRN Reason: Pain Diet: Regular Activity Restrictions: No lifting > 15 pounds. Shower Restrictions: No Driving Restrictions: Yes (Until seen in office.) Weight Bearing: Full Weight Instruction Topics: Wound Care No Smoking: If you smoke, Please STOP! Call for help. Follow-up with: Maikol Solomon MD [Primary Care Provider] - Clayton Reyes MD [Provider Admit Priv/Credential] -
--- NOTE | 2017-09-20 11:23 | PROVIDER PROGRESS NOTE ---
Subjective - General Admit Date: 09/17/17 Procedure Date: 09/17/17 Post Op Days: 3 Procedure Performed: SILS takedown colostomy with rescue port converted to open procedure to add - Review of Systems Wound/Incisions: positive: Other (All the dressings were removed and the midline incision is well approximated with skin charmaine. The ostomy site is also well approximated in the medial and lateral thirds and the Betadine soaked 1 inch gauze was removed from the wound with a significant amount of patient discomfort. A dressing was applied upon this. The drain was stripped by me and a clot was removed. The patient was shown how to strip the drain as was the nurse and we agreed that stripping of the drain should occur every 6 hours or so.) Drain Type: Alexis Drain Output Description: 60 mLs so far today - serosanguinous General: positive: No symptoms, Other (States he has abdominal pain.) HEENT: positive: No symptoms Pulmonary: positive: No symptoms Cardiovascular: positive: No symptoms Gastrointestinal: positive: No symptoms Genitourinary: positive: No symptoms (Marquez in place.) Musculoskeletal: positive: No symptoms Skin: positive: No symptoms Psychiatric: positive: No symptoms Objective - Patient Data Reviewed Vital Signs: Yes Vital Signs: Vital Signs x48h Temp Pulse Resp BP Pulse Ox 09/20/17 08:21 36.6 C 88 16 150/101 H 96 Intake & Output: Intake and Output Totals x24h 09/18/17 09/19/17 09/20/17 23:59 23:59 23:59 Intake Total 2966.667 3258.333 2350.001 Output Total 1160 545 780 Balance 5828.704 1748.333 1570.001 - Lab Results Lab Results: 09/20/17 05:40 09/20/17 05:40 Other Lab Results: Lab Results x24hrs 09/20/17 09/20/17 Range/Units 05:40 05:40 WBC 8.5 (4.8-10.8) x10^3/uL RBC 4.16 L (4.70-6.10) 10^6/uL Hgb 12.3 L (14.0-18.0) g/dL Hct 36.4 L (42.0-52.0) % MCV 87.7 (80.0-94.0) fL MCH 29.6 (27.0-31.0) pg MCHC 33.7 (32.0-36.0) g/dL RDW 13.8 (12.0-15.0) % Plt Count 197 (130-450) 10^3/uL MPV 7.8 (7.4-11.4) fL Neut # 5.6 (1.5-6.6) 10^3/uL Lymph # 1.9 (1.5-3.5) 10^3/uL [place] # 0.7 (0.0-1.0) 10^3/uL Eos # 0.2 (0.0-0.7) 10^3/uL Baso # 0.0 (0.0-0.1) 10^3/uL Absolute Nucleated RBC 0.01 x10^3/uL Nucleated RBC % 0.1 /100WBC Sodium 137 (135-145) mmol/L Potassium 3.7 (3.5-5.0) mmol/L Chloride 107 (101-111) mmol/L Carbon Dioxide 24 (21-32) mmol/L Anion Gap 6.0 (6-13) BUN 7 (6-20) mg/dL Creatinine 0.9 (0.6-1.2) mg/dL Estimated GFR (MDRD) 91 (>89) Glucose 98 (70-100) mg/dL Calcium 8.2 L (8.5-10.3) mg/dL Total Bilirubin 0.7 (0.2-1.0) mg/dL AST 21 (10-42) IU/L ALT 26 (10-60) IU/L Alkaline Phosphatase 46 (42-121) IU/L Total Protein 5.9 L (6.7-8.2) g/dL Albumin 3.5 (3.2-5.5) g/dL Globulin 2.4 (2.1-4.2) g/dL Albumin/Globulin Ratio 1.5 (1.0-2.2) - Current Medications Current Medications: Current Medications Generic Name Dose Route Start Last Admin Trade Name Freq PRN Reason Stop Dose Admin Hydromorphone HCl 1 mg 09/19/17 10:50 09/20/17 09:00 Dilaudid Inj Carp IVP 1 mg Q1HR PRN Administration PAIN Potassium Chloride/Dextrose/Sod Cl 1,000 mls @ 100 mls/hr 09/17/17 21:00 09:25 IV 0 mls/hr .Q10H CHAITANYA Infusion Ertapenem 1 gm/ Sodium 100 mls @ 200 mls/hr 09/18/17 15:00 09/19/17 16:23 Chloride IV Infused Q24H CHAITANYA Infusion Ketorolac Tromethamine 10 mg 09/19/17 10:49 09/20/17 05:44 Toradol PO 09/24/17 10:48 10 mg Q6HR PRN Administration PAIN Ondansetron HCl 4 mg 09/17/17 20:25 09/19/17 16:19 Zofran Inj IVP 4 mg Q6H PRN Administration Nausea / Vomiting Oxycodone/Acetaminophen 1 tab 09/19/17 10:48 09/19/17 14:39 Percocet 5 Mg/325 Mg PO 1 tab Q4HR PRN Administration PAIN Pantoprazole Sodium 40 mg 09/18/17 07:00 09/20/17 05:44 Protonix IVP 40 mg QDAC CHAITANYA Administration Sodium Chloride 10 ml 09/18/17 01:00 09/20/17 08:39 Normal Saline Flush 0.9% IVP Not Given 0100,0900,1700 CHAITANYA Sodium Chloride 10 ml 09/17/17 20:25 09/19/17 05:41 Normal Saline Flush 0.9% IVP 10 ml PRN PRN Administration NEEDED PER PROVIDER ORDERS - Physical Exam Wound/Incisions: positive: Healing well General Appearance: positive: No acute distress Eyes Bilateral: positive: No lid inflammation, Conjunctivae nml, No scleral icterus ENT: positive: No signs of dehydration Neck: positive: Trachea midline Respiratory: positive: Chest non-tender, No respiratory distress, Breath sounds nml Cardiovascular: positive: Regular rate & rhythm, No murmur Abdomen: positive: Tenderness (Only incisional.), Other (Wounds clean. Drain removed and patient tolerated well.) Skin: positive: Color nml Extremities: positive: Nml appearance Neurologic/Psychiatric: positive: Oriented x3 Impression/Plan - Problem List Problem List: D3 s/p colostomy takedown Patient tolerateing general diet. Pain controlled. No evidence of infection. Small amount of blood with BM is not a cause for concern.
--- NOTE | 2017-09-20 11:26 | DISCHARGE SUMMARY ---
"Discharge Summary Admit Date: 09/17/17 Discharge Date: 09/20/17 Discharging Provider: Eric Code Status: Attempt Resuscitation Condition at Discharge: Good Discharge Disposition: 01 Home, Self Care - DIAGNOSES Admission Diagnoses: Colostomy Discharge Diagnoses with Status of Each Condition: No longer has colostomy. - CONSULTS | PROCEDURES Procedures: Colostomy takedown on 09-17-[address] Reyes. - HOSPITAL COURSE Hospital Course: Patient had a colostomy placed by [facility] months ago for perforated diverticulitis. Patient presented for takedown. - ALLERGIES Allergies/Adverse Reactions: Allergies Allergy/AdvReac Type Severity Reaction Status Date / Time No Known Drug Allergies Allergy Verified 05/24/17 10:49 - MEDICATIONS Home Medications: Ambulatory Orders Medication Instructions Recorded Confirmed Ketorolac [Toradol] 10 mg PO Q6HR PRN #20 tablet 09/20/17 - PHYSICAL EXAM AT DISCHARGE General Appearance: positive: No acute distress Eyes Bilateral: positive: No lid inflammation, Conjunctivae nml, No scleral icterus ENT: positive: No signs of dehydration Neck: positive: Trachea midline Respiratory: positive: Chest non-tender, No respiratory distress, Breath sounds nml Cardiovascular: positive: Regular rate & rhythm, No murmur Abdomen: positive: Tenderness (Only incisional - drain removed.) Skin: positive: Color nml Extremities: positive: Nml appearance Neurologic/Psychiatric: positive: Oriented x3 - LABS Result Diagrams: 09/20/17 05:40 09/20/17 05:40 - FOLLOW UP Follow Up: MD Eric in 7-10 days - TIME SPENT Time Spent in Discharge (Minutes): 35"
== END 2017-09-20 11:55 | disposition home or self-care (01) | DRG 330 ==
LOC: MS2 11:07
PROVIDERS: ADMIT Surgery; ATTEND Surgery
PROC: 0DQE0ZZ Repair Large Intestine, Open Approach (ICD-10-PCS; 2017-09-17)
PROC: 0DBE4ZZ Excision of Large Intestine, Percutaneous Endoscopic Approach (ICD-10-PCS; principal; 2017-09-17 15:35)
DX: Z43.3 Encounter for attention to colostomy (principal); K91.81 Other intraoperative complications of digestive system; Y65.8 Other specified misadventures during surgical and medical care; Y73.3 Surgical instruments, materials and gastroenterology and urology devices (including sutures) associated with adverse incidents; Y92.234 Operating room of hospital as the place of occurrence of the external cause; Z87.19 Personal history of other diseases of the digestive system; Z87.891 Personal history of nicotine dependence; Z72.89 Other problems related to lifestyle
CPT/HCPCS: 36415; 80053; 85025